=== PATIENT | male | born 1985 | race Caucasian/White ===

== ENCOUNTER 2017-07-27 06:14 | Emergency (ER) | payer OTHER, SELFPAY ==
[2017-07-27 06:17] VITALS: BP 148/81; PULSE 75; RESP 15; TEMP 36.7; O2SAT 97; BMI 31.0
[2017-07-27 06:20] LABS: Bedside Glucose 269 mg/dL (70-110)
--- NOTE | 2017-07-27 06:26 | EKG12_ITS ---
Test Reason : DIZZINESS Blood Pressure : / mmHG Vent. Rate : 075 BPM Atrial Rate : 075 BPM P-R Int : 144 ms QRS Dur : 088 ms QT Int : 350 ms P-R-T Axes : 042 077 027 degrees QTc Int : 390 ms Normal sinus rhythm Normal ECG Confirmed by YASMIN MONROE MD ([id number]), magazine editor EMMANUEL PARIS ([id number] on 07/28/2017 2:30:33 PM Referred By: ROBB Confirmed By:YASMIN MONROE MD
--- NOTE | 2017-07-27 06:27 | ED.VISSUMM ---
- ER Visit Summary Date of Service: 07/27/17 Chief Complaint: [] 48 hours feeling lightheaded History of Present Illness: The patient is a 32 M planing of over last 2 days feeling dizzy. No vertigo. He feels intermittent lightheadedness mainly when doing things and standing up. He states he just feels fuzzy in his head. No headache nausea or vomiting or other symptoms. He had a flulike illness last week with symptoms that have been resolving. He wanted to make sure he was not in diabetic ketoacidosis as he has a history of type 1 diabetes. His blood sugar was low on Tuesday and high on Tuesday. It is 269 here in the department. He has normal thirst and urination. He does not feel like he is in DKA otherwise. Physical Examination: [] Vital signs reviewed General: Well-nourished well-developed Head: Normocephalic atraumatic Eyes: Pupils equal round and reactive to light extraocular movements intact ENT: TMs clear no hemotympanum no trauma Neck: Nontender full range of motion Cardiovascular: Regular rate rhythm no murmurs normal S1-S2 Respiratory: No distress clear to auscultation bilaterally chest nontender Abdomen: Soft nontender nondistended normal bowel sounds no masses Back: Nontender no CVA tenderness Extremities: Nontender active range of motion ?4 extremities no trauma Skin: Normal color no trauma Neuro alert oriented cranial nerves II through XII intact normal strength sensation reflexes Test Results: [] Emergency Department Course and Treatment: [] EKG shows sinus rhythm at 75 without ischemia. CBC normal except hemoglobin 16.8. Otherwise unremarkable except for slight elevated glucose 224. No evidence of diabetic ketoacidosis. At this time I think he is having residual lightheadedness likely from his flulike illness. He will follow-up as an outpatient. Treatment Plan: [] Disposition: [] Impression: [] Lightheadedness Recent flulike illness This note was generated with [employer] dictation software. It may contain incorrect words, spelling, and punctuation that were not noted in review of the chart prior to signing ED Disposition - Plan for ED Patient: Disposition: Home or Assisted Living Chief Complaint: Dizziness Instructions: Possible Causes of Dizziness or Fainting Referrals: Alton Suarez MD [Primary Care Provider] -
[2017-07-27 06:43] LABS: Absolute Lymphocyte Count 1.76 X10^3/ul (0.83-4.51); Absolute Neutrophil Count 4.3 X10^3/uL (2.0-7.7); Basophil# 0.02 X10^3/uL; Basophil% 0.3 % (0-1); Eosinophil# 0.29 X10^3/uL; Eosinophils% 4.2 % (0-5); Hematocrit 47.2 % (40-54); Hemoglobin 16.8 g/dl (13.0-16.5); Lymphocyte # 1.76 X10^3/ul (4.0); Lymphocyte % 25.5 % (19-41); Mean Corp Hgb Conc 35.6 g/gl (32-36); Mean Corpuscular Hgb 32.7 pg (27.0-32.0); Mean Platelet Vol. 9.8 fl (6.2-12.0); Monocyte# 0.54 X10^3/uL; Monocyte% 7.8 % (0-10); Neutrophil # 4.29 X10^3/uL (2.7-7.7); Neutrophil % 62.2 % (47-70); POSITIVE COUNT NO; POSITIVE DIFFERENTIAL NO; POSITIVE MORPHOLOGY NO; Platelet Count 241 K/mm3 (150-450); RBC Distribution Width CV 12.4 % (11.6-14.6); RBC Distribution Width SD 41.5 fl (35.1-43.9); Red Blood Count 5.13 M/mm3 (4.6-6.2); White Blood Count 6.9 K/mm3 (4.4-11.0)
--- NOTE | 2017-07-27 06:47 | ED.DEP ---
ED Disposition - Plan for ED Patient: Disposition: Home or Assisted Living Chief Complaint: Dizziness Instructions: Possible Causes of Dizziness or Fainting Referrals: Alton Suarez MD [Primary Care Provider] -
[2017-07-27 06:57] LABS: Anion Gap 7 (5-15); BUN 18 mg/dL (7-18); BUN/Creat Ratio 23.3 RATIO (10-20); Calcium,Total 9.1 mg/dL (8.5-10.1); Chloride 101 mmol/L (98-107); Creatinine, Serum 0.77 mg/dL (0.70-1.30); EST Glomerular Filtration Rate 125 mL/min (>60); Est Glom Filt Rate - Afr Amer 151 mL/min (>60); Estimated Creatinine Clearance 152.57 ml/min; Glucose 224 mg/dL (74-106); Potassium 4.6 mmol/L (3.5-5.1); Sodium Level 136 mmol/L (136-145)
[2017-07-27 07:16] VITALS: BP 127/76; PULSE 80; RESP 16; O2SAT 99
== END 2017-07-27 07:17 | disposition home or self-care (01) ==
PROVIDERS: Emergency Provider Emergency Medicine; Family Provider Family Medicine; PCP Family Medicine
DX: R42 Dizziness and giddiness (principal); E10.9 Type 1 diabetes mellitus without complications
CPT/HCPCS: 80048; 82962; 84484; 85025; 93005; 99283; J7030; A4216

== ENCOUNTER → 2019-05-22 10:39 | Outpatient (CLI) | payer OTHER, SELFPAY ==
[2019-05-22 09:28] VITALS: BMI 32.4
[2019-05-22 11:22] LABS: Microalbumin,Random Urine < 5.0 mg/L (NO RANGE EST.)
[2019-05-22 11:39] LABS: AST(SGOT) 38 U/L (15-37); Alanine Aminotransfer ALT/SGPT 52 U/L (16-61); Alkaline Phosphatase 104 U/L (45-117); Anion Gap 7 (5-15); BUN 8 mg/dL (7-18); BUN/Creat Ratio 9.5 RATIO (10-20); Calcium,Total 9.2 mg/dL (8.5-10.1); Chloride 100 mmol/L (98-107); Cholesterol 237 mg/dL (200); Creatinine, Serum 0.84 mg/dL (0.70-1.30); EST Glomerular Filtration Rate 112 mL/min (>60); Est Glom Filt Rate - Afr Amer 135 mL/min (>60); Globulin 4.1 g/dL (2.2-4.2); Glucose 254 mg/dL (74-106); High Density Lipoprotein 82 mg/dL; Potassium 4.4 mmol/L (3.5-5.1); Protein, Total 8.1 g/dL (6.4-8.2); Sodium Level 133 mmol/L (136-145); Thyroid Stim Hormone (TSH) 1.21 uIU/mL (0.358-3.74); Triglycerides 80 mg/dL; Very Low Density Lipoprotein 16 mg/dL (5-40)
== END ==
LOC: LAB 10:41
PROVIDERS: PCP Family Medicine; Referring Provider Internal Medicine Endocrinology, Diabetes & Metabolism; Visit Provider Internal Medicine Endocrinology, Diabetes & Metabolism
DX: E10.9 Type 1 diabetes mellitus without complications (principal)
CPT/HCPCS: 36415; 80053; 80061; 82043; 82570; 84443

== ENCOUNTER → 2021-08-25 | Outpatient (CLI) | payer BC, SELFPAY ==
[2021-08-25 12:29] LABS: Vitamin D,25 Hydroxy 11.2 ng/mL
[2021-08-25 12:35] LABS: ALB/GLOB Ratio 0.9 RATIO (0.9-2.4); AST(SGOT) 23 U/L (15-37); Alanine Aminotransfer ALT/SGPT 36 U/L (16-61); Albumin, Serum 3.6 g/dL (3.2-5.0); Alkaline Phosphatase 112 U/L (45-117); Anion Gap 6 (5-15); BUN 12 mg/dL (7-18); BUN/Creat Ratio 15.4 RATIO (10-20); Calcium,Total 8.8 mg/dL (8.5-10.1); Chloride 98 mmol/L (98-107); Cholesterol 239 mg/dL (200); Creatinine, Serum 0.78 mg/dL (0.70-1.30); EST Glomerular Filtration Rate 121 mL/min (>60); Est Glom Filt Rate - Afr Amer 146 mL/min (>60); Glucose 256 mg/dL (74-106); High Density Lipoprotein 72 mg/dL; Potassium 4.8 mmol/L (3.5-5.1); Protein, Total 7.6 g/dL (6.4-8.2); Sodium Level 132 mmol/L (136-145); Thyroid Stim Hormone (TSH) 1.66 uIU/mL (0.358-3.74); Triglycerides 80 mg/dL; Very Low Density Lipoprotein 16 mg/dL (5-40)
[2021-08-25 12:48] LABS: Microalbumin,Random Urine < 5.0 mg/L (NO RANGE EST.)
== END | disposition home or self-care (01) ==
LOC: BIMLAB 08:53
PROVIDERS: PCP Family Medicine; Referring Provider Internal Medicine Endocrinology, Diabetes & Metabolism; Visit Provider Internal Medicine Endocrinology, Diabetes & Metabolism
DX: E10.65 Type 1 diabetes mellitus with hyperglycemia (principal); I10 Essential (primary) hypertension; E55.9 Vitamin D deficiency, unspecified
CPT/HCPCS: 36415; 80053; 80061; 82043; 82306; 82570; 84443

== ENCOUNTER → 2023-01-10 | Outpatient (CLI) | payer BC, SELFPAY ==
[2023-01-10 15:12] LABS: Vitamin D,25 Hydroxy 36.7 ng/mL
[2023-01-10 15:26] LABS: ALB/GLOB Ratio 0.9 RATIO (0.9-2.4); AST(SGOT) 18 U/L (15-37); Alanine Aminotransfer ALT/SGPT 29 U/L (16-61); Albumin, Serum 3.5 g/dL (3.2-5.0); Alkaline Phosphatase 94 U/L (45-117); Anion Gap 4 (5-15); BUN 9 mg/dL (7-18); BUN/Creat Ratio 11.4 RATIO (10-20); Calcium,Total 8.9 mg/dL (8.5-10.1); Chloride 103 mmol/L (98-107); Cholesterol 204 mg/dL (200); Creatinine, Serum 0.79 mg/dL (0.70-1.30); EST Glomerular Filtration Rate 117 mL/min (>60); Est Glom Filt Rate - Afr Amer 142 mL/min (>60); Globulin 3.9 g/dL (2.2-4.2); Glucose 120 mg/dL (74-106); High Density Lipoprotein 62 mg/dL; Protein, Total 7.4 g/dL (6.4-8.2); Sodium Level 136 mmol/L (136-145); Thyroid Stim Hormone (TSH) 1.92 uIU/mL (0.358-3.74); Triglycerides 73 mg/dL; Very Low Density Lipoprotein 15 mg/dL (5-40)
[2023-01-10 16:43] LABS: Microalbumin,Random Urine < 5.0 mg/L (NO RANGE EST.)
== END | disposition home or self-care (01) ==
LOC: LAB 13:45
PROVIDERS: PCP Family Medicine; Referring Provider Nurse Practitioner Family; Visit Provider Nurse Practitioner Family
DX: E10.65 Type 1 diabetes mellitus with hyperglycemia (principal)
CPT/HCPCS: 36415; 80053; 80061; 82043; 82306; 82570; 84443

== ENCOUNTER → 2024-12-04 | Outpatient (CLI) | payer BC, SELFPAY ==
[2024-12-04 16:18] LABS: Creatinine, Urine (random) 144.00 mg/dL (39.00-259.00); Microalbumin,Random Urine < 12.0 mg/L (<20 mg/L)
[2024-12-04 16:48] LABS: AST(SGOT) 23 U/L (<=37); Alanine Aminotransfer ALT/SGPT 18 U/L (<=46); Albumin, Serum 4.0 g/dL (3.5-5.0); Alkaline Phosphatase 84 U/L (40-129); Anion Gap 13 (5-15); BUN 11 mg/dL (4-19); BUN/Creat Ratio 14.1 RATIO (10-20); Calcium,Total 9.4 mg/dL (7.6-11.0); Carbon Dioxide 21.0 mmol/L (21.0-32.0); Chloride 103 mmol/L (98-108); Cholesterol 172 mg/dL (<=200); Globulin 3.4 g/dL (2.2-4.2); Glucose 111 mg/dL (70-99); Low Density Lipoprotein Calc. 107 mg/dL; Potassium 4.0 mmol/L (3.3-5.1); Triglycerides 66 mg/dL; Very Low Density Lipoprotein 13 mg/dL (5-40); cholesterol:hdl ratio screen 3.33
== END | disposition home or self-care (01) ==
LOC: LAB 15:24
PROVIDERS: PCP Family Medicine; Referring Provider Nurse Practitioner Family; Visit Provider Nurse Practitioner Family
DX: E10.65 Type 1 diabetes mellitus with hyperglycemia (principal)
CPT/HCPCS: 36415; 80053; 80061; 82043; 82570; 84443

== ENCOUNTER 2024-12-30 14:36 | Emergency (ER) | payer BC, SELFPAY ==
[2024-12-30 14:36] VITALS: BP 184/116; PULSE 128; RESP 15; TEMP 36.1; O2SAT 98; BMI 38.2
[2024-12-30 15:00] VITALS: BP 149/94; PULSE 109; O2SAT 97
--- NOTE | 2024-12-30 15:02 | EX.ED.GENINJ ---
HPI History of Present Illness Chief Complaint: Chest Other Detail of Chief Complaint: Left chest pain due to trauma Informant: patient Onset/Context/Timing Onset: Yesterday Mechanism/Context: Blunt Injury Location of pain/injuries: - (Anterior left chest) Quality of Pain: Dull and Aching Location: Midclavicular line over ribs 6 7 and 8 Current Severity: Mild Maximum Severity: Severe Worsened by: Deep breathing, certain movements and palpation Relieved by: Remaining still Associated Symptoms Associated Symptoms: Negative for Parasthesias, Weakness, Loss of function, Inability to ambulate, Loss of consciousness or Amnesia Narrative Narrative: Patient is a 39-year-old male with type 1 diabetes. He presents because of blunt trauma to the left anterior chest. He was wrestling with his son. Decided accidentally kneed him in the chest. Has had pain since. Is taken ibuprofen with no improvement. He denies clicking with deep breathing. He denies dyspnea or dyspnea on exertion. Certain movements make the pain worse and palpation makes the pain worse. He denies left upper quadrant abdominal pain or pain referred to his left trapezius/shoulder region. Patient is not on anticoagulant. Review of records indicates he has history of tobacco use and alcohol use. He also has history of hypertension per problem list. He is on losartan. Prior similar symptoms: No Recent Illness/Hospitalization: No [facility] Medical History Essential hypertension Diabetes Home Medications ?Medication ?Instructions ?Recorded ?Last Taken ?Type blood sugar diagnostic #450 ea 04/23/20 Unknown Rx blood-glucose sensor (Dexcom G6 #9 ea 06/12/24 Unknown Rx Sensor device) blood-glucose transmitter (Dexcom #1 ea 06/12/24 Unknown Rx G6 Transmitter device) insulin pump cart,auto,BT,G6/7 #45 ea 12/04/24 Unknown Rx (Omnipod 5 G6-G7 Pods (Gen 5) subcutaneous cartridge) losartan 100 mg tablet 100 mg PO DAILY #90 tabs 12/04/24 Unknown Rx insulin pump cart,automated,BT #45 ea 12/05/24 Unknown Rx Humalog U-100 Insulin 100 unit/mL 100 unit subcut DAILY #90 mL 12/10/24 Unknown Rx subcutaneous solution (insulin lispro) hydrocodone-acetaminophen 5-325mg 1 tab PO Q6H PRN PRN Pain 3 days 12/30/24 Unknown Rx 5mg-325mg #10 TABLETS Allergy/AdvReac Type Severity Reaction Status Date / Time doxycycline Allergy Mild Rash Verified 12/30/24 14:36 tetracycline Allergy Rash Verified 12/30/24 14:36 Family History Grandmother Thyroid disorder Social History Smoking Status: Never smoker alcohol intake: never substance use type: does not use what type of physical activity do you participate in: none ROS ROS ED Constitutional Constitutional ED: Denies chills, fever(s), subjective or sweats Eyes Eyes: Denies blurry vision or change in vision Cardiovascular Cardiovascular: Denies chest pain, palpitations, paroxysmal nocturnal dyspnea or racing heartbeat Respiratory/Chest Respiratory/Chest: Denies cough, dyspnea, dyspnea on exertion or paroxysmal nocturnal dyspnea Gastrointestinal Gastrointestinal: Denies abdominal pain, nausea or vomiting Integumentary Denies Abrasions or rash EXAM Physical Exam Const Vital Signs: 12/30/24 14:36 12/30/24 15:00 Temperature 96.9 F L Temperature Source Temporal Pulse Rate 128 H 109 H Respiratory Rate 15 Blood Pressure 184/116 H 149/94 H Blood Pressure Mean 138 109 Pulse Ox 98 97 Oxygen Delivery Method Room Air Positive well nourished and well developed Constitutional Narrative: BMI is 38.3. Patient is tachycardic and hypertensive. Will have nurse reassess vitals. General Appearance ED: well developed HEENT HEENT Narrative: Head is normocephalic. atraumatic Nose: Negative for septum abnormal Eyes PERRL and EOMs intact bilaterally Chest Wall inspection of chest normal and palpation of chest normal Chest Narrative: Pain patient midclavicular line over ribs 6, 7 and 8. Resp normal respiratory effort and clear to auscultation bilaterally Cardio regular rhythm, S1 normal heart sound and no murmurs Rate: tachycardic GI normal to inspection, nondistended, normoactive bowel sounds, non-tender, non-distended and no masses GI Narrative: There is no hepatosplenomegaly on percussion. Specifically there is no tenderness of the left or right costal margin. There is no evidence of abdominal trauma i.e. bruising. Extremity normal to inspection and full ROM Neuro oriented x3 and CN's II-XII intact bilaterally Norton Coma Scale: document GCS findings Spontaneous Oriented Sensorium / Orientation: alert Skin no rashes or lesions noted, no wounds, skin turgor normal and no jaundice MDM MDM MDM Narrative Medical decision making narrative: Since patient does have point tenderness over multiple ribs we will obtain x-ray to assess for pneumothorax, hemothorax, fractured ribs. Since patient drove himself to the emergency department he did not receive any opiate analgesia. He states he took ibuprofen today. Radiography Chest X-Ray - ED: Read by ED Physician (4 views of the left ribs with chest was obtained. There is no evidence of pneumothorax, hemothorax, fractured ribs. Independent reviewed interpreted by me at 1516) Discharge Plan Triage Chief Complaint: Chest Other ED Provider: Marciano Mcconenll Dx/Rx/DC Orders Clinical Impression: Acute traumatic injury of chest wall, Type 1 diabetes mellitus, Hypertension, Tachycardia, Adult BMI 38.0-38.9 kg/sq m Instructions: ED Chest Wall Contusion Prescriptions: New hydrocodone-acetaminophen 5-325 mg tablet 1 tab PO Q6H PRN PRN (Reason: Pain) 3 Days Qty: 10 0RF No Action (DME) blood sugar diagnostic Strip See Rx Instructions .ROUTE .MEDSUPPLY Qty: 450 3RF Rx Instructions: 5 times daily (DME) Dexcom G6 Sensor Device See Rx Instructions .Route Qty: 9 5RF Rx Instructions: 1 sensor q 10 days (DME) Dexcom G6 Transmitter Device See Rx Instructions .Route Qty: 1 3RF Rx Instructions: 1 sensor q 90 days (DME) Omnipod 5 G6-G7 Pods (Gen 5) Cartridge See Rx Instructions .Route Qty: 45 2RF Rx Instructions: change every 2 days losartan 100 mg tablet 100 mg PO DAILY Qty: 90 3RF (DME) insulin pump cart,automated,BT Cartridge See Rx Instructions .Route Qty: 45 1RF Rx Instructions: 1 pod q 48 hrs insulin lispro [Humalog U-100 Insulin] 100 unit/mL solution 100 unit subcut DAILY Qty: 90 2RF Primary Care Provider: Alton Suarez Referrals: Alton Suarez MD [Primary Care Provider] - Print Language: Greenlandic Disposition Disposition: Home, Self Care
--- NOTE | 2024-12-30 15:03 | RAD_ITS ---
PROCEDURE: RIBS UNI MIN 3V W/PA CHEST 12/30/2024 REASON FOR EXAM: LEFT RIB TRAUMA TECHNIQUE: Procedure Code: RADRIB Modality: DX Procedure: RIBS UNI MIN 3V W/PA CHEST COMPARISON: None FINDINGS: The lungs are clear. No evidence of left rib fracture. There is no left pneumothorax. No soft tissue emphysema. No radiopaque foreign body. RAD/Ribs Uni Min 3V w/PA Chest IMPRESSION: No acute process in the chest and no evidence of left rib fracture. Reading Location: [id number]
--- OUTSIDE RECORDS SUMMARY | 2024-12-30 15:16 | XMS RPT_ITS | CCD ---
Author Organization [facility] Care Team Providers Care Store Planner Name Role Phone Vicki DOOLEY, Greta Corral Primary Care Provider Dr. Greta Cohen Primary Care Provider Dr. Greta Cohen Referring Provider Dr. Nav Sharma Attending Provider VICKI DOOLEY, GRETA Corral Primary Care Physician ADELINA MASTERS MD Attending Unavailable VICKI DOOLEY., GRETA Corral Primary Care Unavailabl e Vicki DOOLEY, Greta Corral Primary Care Provider Dr. Greta Cohen Primary Care Provider Dr. Greta Cohen Referring Provider SANA Barrientos Attending Provider Dr. Greta Cohen MD Primary Care Provider Dr. Greta Cohen MD Referring Provider Dr. Nav Sharma MD Attending Provider Effie Frederick Attending Provider Floyd CYBER INTEL PLANNEREffie Benton Referring Provider Greta Cohen Primary Care Unavailable Greta Cohen Referring Unavailable Effie Barrientos Attending Unavailable Greta Cohen Primary Care Unavailable Greta Cohen Referring Unavailable Nav Sharma Attending Unavailable Greta Cohen Primary Care Unavailable Effie Barrientos Attending Unavailable Effie Barrientos Referring Unavailable Greta Cohen Primary Care Unavailable Effie Barrientos Attending Unavailable Allergies Allergy Classification Reported Allergen(s) Allergy Type Date of Onset Reaction(s) Facility (9 sources) Doxycycline Drug Allergy 7 GI Upset [facility] Work Phone: (5 sources) Streptococcus pneumoniae type 1 capsular polysaccharide antigen / Streptococcus pneumoniae type 10A capsular polysaccharide antigen / Streptococcus pneumoniae type 11A capsular polysaccharide antigen / Streptococcus pneumoniae type 12F capsular polysaccharide antigen / Streptococcus pneumoniae type 14 capsular polysaccharide antigen / Streptococcus pneumoniae type 15B capsular polysaccharide antigen / Streptococcus pneumoniae type 17F capsular polysaccharide antigen / Streptococcus pneumoniae type 18C capsular polysaccharide antigen / Streptococcus pneumoniae type 19A capsular polysaccharide antigen / Streptococcus pneumoniae type 19F capsular polysaccharide antigen / Streptococcus pneumoniae type 2 capsular polysaccharide antigen / Streptococcus pneumoniae type 20 capsular polysaccharide antigen / Streptococcus pneumoniae type 22F capsular polysaccharide antigen / Streptococcus pneumoniae type 23F capsular polysaccharide antigen / Streptococcus pneumoniae type 3 capsular polysaccharide antigen / Streptococcus pneumoniae type 33F capsular polysaccharide antigen / Streptococcus pneumoniae type 4 capsular polysaccharide antigen / Streptococcus pneumoniae type 5 capsular polysaccharide antigen / Streptococcus pneumoniae type 6B capsular polysaccharide antigen / Streptococcus pneumoniae type 7F capsular polysaccharide antigen / Streptococcus pneumoniae type 8 capsular polysaccharide antigen / Streptococcus pneumoniae type 9N capsular polysaccharide antigen / Streptococcus pneumoniae type 9V capsular polysaccharide antigen Drug Allergy 9 Other: See Comments [facility] Work Phone: (5 sources) Tetracycline; Translations: [tetracycline] Drug Allergy 2 [facility] (1 source) Doxycycline Drug Allergy [address] [facility] (1 source) Tetracycline Drug Allergy [address] [facility] Medications Current Medications Medication Drug Class(es) Dates Sig (Normalized) Sig (Original) Blood Sugar Diagnostic (2 sources) Start: 04-23-2020 Blood Sugar Diagnostic Active 0 .ROUTE .MEDSUPPLY 450 April 23, 2020 4:29pm 5 times daily Start: 04-23-2020 Blood Sugar Di agnostic Active 0 .ROUTE .MEDSUPPLY 450 April 23, 2020 1:00am 5 times daily Blood-Glucose Sensor (Dexcom G6 Sensor) device (7 sources) Start: 06-12-2024 Blood-Glucose Sensor (Dexcom G6 Sensor) device Active 0 .Route 9 June 12, 2024 4:10pm Type 1 diabetes mellitus with hyperglycemia Type 1 diabetes mellitus with hyperglycemia 1 sensor q 10 days Start: 05-19-2023 End: 06-12-2024 Blood-Glucose Sensor (Dexcom G6 Sensor) device Discontinued 0 .Route 9 May 19, 2023 4:49pm June 12, 2024 4:11pm Type 1 diabetes mellitus with hyperglycemia Type 1 diabetes mellitus with hyperglycemia 1 sensor q 10 days Start: 06-30-2022 End: 05-19-2023 Blood-Glucose Sensor (Dexcom G6 Sensor) device Discontinued 0 .Route 9 June 30, 2022 1:00am May 19, 2023 4:49pm Type 1 diabetes mellitus with hyperglycemia Type 1 diabetes mellitus with hyperglycemia 1 sensor q 10 days Start: 06-30-2022 Blood-Glucose Sensor (Dexcom G6 Sensor) device Active 0 .Route 9 June 30, 2022 1:00am 1 sensor q 10 days Blood-Glucose Transmitter (Dexcom G6 Transmitter) device (7 sources) Start: 06-12-2024 Blood-Glucose Transmitter (Dexcom G6 Transmitter) device Active 0 .Route 1 3 June 12, 2024 4:11pm Type 1 diabetes mellitus with hyperglycemia Type 1 diabetes mellitus with hyperglycemia 1 sensor q 90 days Start: 05-19-2023 End: 06-12-2024 Blood-Glucose Transmitter (D excom G6 Transmitter) device Discontinued 0 .Route 1 3 May 19, 2023 4:49pm June 12, 2024 4:11pm Type 1 diabetes mellitus with hyperglycemia Type 1 diabetes mellitus with hyperglycemia 1 sensor q 90 days Start: 06-30-2022 End: 05-19-2023 Blood-Glucose Transmitter (D excom G6 Transmitter) device Discontinued 0 .Route 1 June 30, 2022 1:00am May 19, 2023 4:49pm Type 1 diabetes mellitus with hyperglycemia Type 1 diabetes mellitus with hyperglycemia 1 sensor q 90 days Start: 06-30-2022 Blood-Glucose Transmitter (Dexcom G6 Transmitter) device Active 0 .Route 1 June 30, 2022 1:00am 1 sensor q 90 days Flash Glucose Sensor (Freest yle Magdaleno 2 Sensor) kit (4 sources) Start: 08-25-2021 Flash Glucose Sensor (Freestyle Magdaleno 2 Sensor) kit Active 0 .ROUTE .MEDSUPPLY August 25, 2021 8:38am As directed Start: 08-25-2021 End: 08-26-2022 Flash Glucose Sensor (Freest yle Magdaleno 2 Sensor) kit Discontinued 0 .ROUTE .MEDSUPPLY 6 3 August 25, 2021 12:00am August 26, 2022 10:33am As directed Start: 08-25-2021 End: 08-26-2022 Flash Glucose Sensor (Freest yle Magdaleno 2 Sensor) kit Discontinued 0 .ROUTE .MEDSUPPLY 6 August 25, 2021 12:00am August 26, 2022 10:33am As directed NovoLog (1 source) Insulin Analog Start: 04-04-2017 NovoLOG Subcut aneous, TIDAC, 0 Refill(s) Start Date: 04/04/17 Status: Ordered insulin lispro 100 unt/ml injectable solution (20 sources) Insulin Analog Start: 07-05-2022 End: 12-10-2024 Insulin Lispro (Humalog U-100 Insulin) 100 unit/mL solution Active 100 U SC DAILY 90 2 December 10, 2024 1:51pm Start: 07-11-2019 End: 07-08-2022 Insulin Lispro (Humalog Kwik pen Insulin) 100 unit/mL insulin pen Discontinued 20 U SC THREE TIMES A DAY 54 1 June 24, 2022 1:51pm July 08, 2022 2:32pm SSI: 1 unit for every 30 points over 150 Start: 04-26-2019 insulin lispro (HUMALOG KWIKPEN INSULIN) 100 unit/mL inpn TAKING 10 UNITS WITH MEALS PLUS SLIDING SCALE UP TO 40 UNITS DAILY 15 Pen 0 04/26/2019 Active Start: 07-27-2017 End: 07-11-2019 Insulin Lispro 100 UNIT/ML i nsulin pen Discontinued 0 U SQ THREE TIMES A DAY July 27, 2017 12:00am July 11, 2019 2:29pm Start: 07-27-2017 End: 07-11-2019 Insulin Lispro Discontinued 0 UNIT SQ THREE TIMES A DAY July 27, 2017 6:15am July 11, 2019 2:29pm Comment on above: TAKING 10 UNITS WITH MEALS PLUS SLIDING SCALE UP TO 40 UNITS DAILY Insulin Pump Cart,Auto,Bt,G6/7 (Omnipod 5 G6-G7 Pods (Gen 5)) cartridge (1 source) Start: 12-04-2024 Insulin Pump Cart,Auto,Bt,G6/7 (Omnipod 5 G6-G7 Pods (Gen 5)) cartridge Active 0 .Route 45 2 December 04, 2024 12:00am change every 2 days Insulin Pump Cart,Automated,Bt cartridge (3 sources) Start: 12-05-2024 Insulin Pump Cart,Automated,Bt cartridge Active 0 .Route 45 December 05, 2024 9:00am Type 1 diabetes mellitus with hyperglycemia Type 1 diabetes mellitus with hyperglycemia 1 pod q 48 hrs Start: 04-13-2024 End: 12-05-2024 Insulin Pump Cart,Automated, Bt cartridge Discontinued 0 .Route 45 April 13, 2024 5:23pm December 05, 2024 9:00am Type 1 diabetes mellitus with hyperglycemia Type 1 diabetes mellitus with hyperglycemia 1 pod q 48 hrs Start: 04-13-2024 Insulin Pump C art,Automated,Bt cartridge Active 0 .Route 45 April 13, 2024 5:23pm Type 1 diabetes mellitus with hyperglycemia Type 1 diabetes mellitus with hyperglycemia 1 pod q 48 hrs losartan potassium 100 mg oral tablet (20 sources) Angiotensin 2 Receptor Sandi Start: 11-04-2021 End: 12-04-2024 take 1 tablet by mouth once daily Losartan 100 mg tablet Active 100 mg PO DAILY 90 3 December 04, 2024 4:39pm Start: 08-25-2021 End: 11-04-2021 take 1 tablet by mouth once daily Losartan 50 mg tablet Discontinued 50 mg PO DAILY 90 2 August 25, 2021 12:00am November 04, 2021 8:49am naproxen 500 mg oral tablet (1 source) Nonsteroidal Anti-inflammatory Drug Start: 05-04-2022 naproxen 500 mg o ral tablet Dose : 500 mg = 1 tab(s), Oral, BID, PRN as needed for pain, # 20 tab(s), 0 Refill(s), Chest pain Start Date: 05/04/22 Status: Ordered Pen Needle, Diabetic (2 sources) Start: 01-01-2014 Pen Needle, Di abetic Active 1 EACH MC 4 TIMES DAILY January 01, 2014 12:44pm use with Lantus and Novolog insulin Start: 01-01-2014 End: 08-26-2022 Pen Needle, Diabetic Discont inued 1 EACH MC 4 TIMES DAILY 120 January 01, 2014 12:00am August 26, 2022 10:33am use with Lantus and Novolog insulin Completed/Discontinued Medications Medication Drug Class(es) Dates Sig (Normalized) Sig (Original) azithromycin 250 mg oral tablet (4 sources) Macrolide Antimicrobial Start: 12-30-2013 End: 01-01-2014 Azithromycin (Zithromax Z-Benjamin) 250 MG tablet Discontinued 250 mg PO DIRECTED December 30, 2013 12:00am January 01, 2014 12:43pm fluconazole 100 mg oral tablet (4 sources) Azole Antifungal Start: 12-30-2013 End: 01-01-2014 take 1 tablet by mouth once Fluconazole 100 MG tablet Discontinued 100 mg PO ONE TIME December 30, 2013 12:00am January 01, 2014 12:43pm 3 ml insulin detemir 100 unt/ml pen injector (20 sources) Insulin Analog Start: 07-17-2020 End: 08-26-2022 Insulin Detemir U-100 (Levemir Flextouch U-100 Insuln) 100 unit/mL (3 mL) insulin pen Discontinued 25 U SC AT BEDTIME 24 2 June 30, 2022 1:44pm August 26, 2022 10:32am Start: 07-27-2017 End: 12-21-2019 Insulin Detemir U-100 100 UN ITS/ML insulin pen Discontinued 0 U SC EVERY MORNING July 27, 2017 6:16am December 21, 2019 4:30pm Start: 07-27-2017 End: 12-21-2019 Insulin Detemir U-100 Discon tinued 0 UNITS SC EVERY MORNING July 27, 2017 6:16am December 21, 2019 4:30pm Start: 01-01-2014 End: 07-27-2017 Insulin Detemir U-100 (Levem ir Flextouch U-100 Insuln) 100 UNITS/ML Flexpen Discontinued 35 UNITS SC EVERY MORNING 4 January 01, 2014 12:42pm July 27, 2017 6:16am Start: 01-01-2014 End: 07-27-2017 Insulin Detemir U-100 (Levem ir Flextouch U100 Insulin) 100 UNITS/ML Flexpen Discontinued 35 U SC EVERY MORNING 4 0 January 01, 2014 12:00am July 27, 2017 6:16am Comment on above: Inject 15 Units subc utaneously daily at bedtime. 3 ml insulin glargine 100 unt/ml pen injector (9 sources) Insulin Analog Start: 12-21-2019 End: 07-17-2020 Insulin Glargine (Basaglar Kwikpen U-100 Insulin) 100 unit/mL (3 mL) insulin pen Discontinued 25 U SC DAILY 15 April 21, 2020 10:45am July 17, 2020 6:50pm Start: 04-04-2017 Lantus Subcuta neous, 0 Refill(s) Start Date: 04/04/17 Status: Ordered Insulin Pump Cart,Auto,Bt-Cn tr (Omnipod 5 G6 Intro Kit (Gen 5)) cartridge (3 sources) Start: 06-30-2022 End: 06-03-2023 Insulin Pump Cart,Auto,Bt-Cn tr (Omnipod 5 G6 Intro Kit (Gen 5)) cartridge Discontinued 0 .Route 1 0 June 30, 2022 1:00am June 03, 2023 9:49am Type 1 diabetes mellitus with hyperglycemia Type 1 diabetes mellitus with hyperglycemia As directed Start: 06-30-2022 Insulin Pump C art,Auto,Bt-Cntr (Omnipod 5 G6 Intro Kit (Gen 5)) cartridge Active 0 .Route 1 June 30, 2022 1:00am As directed Insulin Pump Cart,Automated, Bt (Omnipod 5 G6 Pods (Gen 5)) cartridge (8 sources) Start: 06-03-2023 End: 04-13-2024 Insulin Pump Cart,Automated, Bt (Omnipod 5 G6 Pods (Gen 5)) cartridge Discontinued 0 .Route 45 June 03, 2023 9:50am April 13, 2024 5:23pm Type 1 diabetes mellitus with hyperglycemia Type 1 diabetes mellitus with hyperglycemia 1 pod q 48 hrs Start: 12-06-2022 End: 06-03-2023 Insulin Pump Cart,Automated, Bt (Omnipod 5 G6 Pods (Gen 5)) cartridge Discontinued 0 .Route 45 December 06, 2022 8:21am June 03, 2023 9:50am Type 1 diabetes mellitus with hyperglycemia Type 1 diabetes mellitus with hyperglycemia 1 pod q 48 hrs Start: 12-06-2022 Insulin Pump C art,Automated,Bt (Omnipod 5 G6 Pods (Gen 5)) cartridge Active 0 .Route 45 December 06, 2022 8:21am 1 pod q 48 hrs Start: 06-30-2022 End: 12-06-2022 Insulin Pump Cart,Automated, Bt (Omnipod 5 G6 Pods (Gen 5)) cartridge Discontinued 0 .Route 45 June 30, 2022 1:00am December 06, 2022 8:21am Type 1 diabetes mellitus with hyperglycemia Type 1 diabetes mellitus with hyperglycemia 1 pod q 48 hrs Start: 06-30-2022 End: 12-06-2022 Insulin Pump Cart,Automated, Bt (Omnipod 5 G6 Pods (Gen 5)) cartridge Discontinued 0 .Route 45 June 30, 2022 1:00am December 06, 2022 8:21am 1 pod q 48 hrs Pen Needle, Diabetic 1 EACH needle (2 sources) Start: 01-01-2014 End: 08-26-2022 Pen Needle, Diabetic 1 EACH needle Discontinued 1 NMA MC 4 TIMES DAILY 120 0 January 01, 2014 12:00am August 26, 2022 10:33am use with Lantus and Novolog insulin Problems Active Problems Problem Classification Problem Date Documented Date Episodic/Chronic Alcohol-related disorders (4 sources) Alcohol abuse; Translations: [Alcohol abuse, uncomplicated] 12-30-2013 Chronic Anxiety disorders (5 sources) Anxiety; Translations: [Anxiety disorder, unspecified] Onset: 08-07-2014 08-29-2014 Chronic Diabetes mellitus with complications (6 sources) Hyperglycemia due to type 1 diabetes mellitus; Translations: [Type 1 diabetes mellitus with hyperglycemia] Onset: 07-25-2024 06-30-2022 Chronic Diabetes mellitus without complication (14 sources) Type 1 diabetes mellitus without complication; Translations: [Type 1 diabetes mellitus without complications] Onset: 10-15-2015 05-22-2019 Chronic Diabetes mellitus without complication (3 sources) Insulin pump present; Translations: [Presence of insulin pump (external) (internal)] 08-26-2022 Episodic Disorders of lipid metabolism (2 sources) Hypercholesterolemia ; Translations: [Pure hypercholesterolemia , unspecified] 07-28-2023 Chronic Essential hypertension (6 sources) Essential hypertension; Translations: [Essential (primary) hypertension] Chronic Nonspecific chest pain (1 source) Chest pain; Translations: [Chest pain, unspecified] Onset: 05-04-2022 Episodic Nutritional deficiencies (7 sources) Vitamin D deficiency; Translations: [Vitamin D deficiency, unspecified] Onset: 08-25-2021 08-25-2021 Chronic Other nutritional; endocrine; and metabolic disorders (4 sources) Obese class I; Translations: [Obesity, unspecified] 12-30-2013 Chronic Other nutritional; endocrine; and metabolic disorders (4 sources) Obesity; Translations: [Obesity, unspecified] 04-21-2020 Chronic Other nutritional; endocrine; and metabolic disorders (2 sources) Obesity, unspecified; Translations: [Obesity, unspecified] Chronic Screening and history of mental health and substance abuse codes (5 sources) Tobacco use and exposure - finding; Translations: [Personal history of nicotine dependence] Episodic Substance-related disorders (5 sources) Smoker; Translations: [Nicotine dependence, unspecified, uncomplicated] Onset: 12-17-2016 06-28-2018 Chronic Past or Other Problems Problem Classification Problem Date Documented Da te Episodic/Chronic Cardiac dysrhythmias (5 sources) Palpitations; Translations: [Palpitations] Onset: 08-07-2014 08-07-2014 Episodic Other circulatory disease (5 sources) Elevated blood-pressure reading without diagnosis of hypertension; Translations: [Elevated blood-pressure reading, without diagnosis of hypertension] Onset: 12-17-2016 12-17-2016 Episodic Other skin disorders (5 sources) Foot callus; Translations: [Corns and callosities] Onset: 06-28-2018 06-28-2018 Episodic Results Test Name Value Interpretation Reference Range Facility Anion gap in Serum or Plasma Ordered By: Effie Barrientos on 12-04-2024 Anion gap [Moles/Vol] 13 mmol/L 5-15 [facility] BUN/creatinine ratioOrdered By: Effie Barrientos on 12-04-2024 Urea nitrogen/Creatinine [Mass ratio] 14.1 mg/mg 10-[address] [facility] Bilirubin, totalOrdered By: Effie Barrientos on 12-04-2024 Bilirubin [Mass/Vol] 0.44 mg/dL 0.00-1.30 [facility] Calculated very low density lipoprotein (VLDL) cholesterol measurementOrdered By: Effie Barrientos on 12-04-2024 Calculated very low density lipoprotein (VLDL) cholesterol measurement 13 mg/dL 5-[address] [facility] Carbon dioxide, total [Moles /volume] in Central venous bloodOrdered By: Effie Barrientos on 12-04-2024 CO2 [Moles/Vol] 21.0 mmol/L 21.0-32.[address] [facility] Chloride assayOrdered By: Me angel Barrientos on 12-04-2024 Chloride [Moles/Vol] 103 mmol/L 98-108 [facility] Comprehensive Metabolic Prof ilon 12-04-2024 Albumin [Mass/Vol] 4.0 g/dL Normal 3.5-5.0 [facility] Comment on above: Performed By: #### L 500.4050, L502.0250, L500.4100, L501.9520 #### [facility] [address] [place], [address] Albumin/Globulin [Mass ratio] 1.2 {ratio} Normal 0.9-2.[address] [facility] Comment on above: Performed By: #### L 500.4050, L502.0250, L500.4100, [id number] #### [facility] [address] [place], [address] ALK PHOS 84 U/L Normal 40-[address] [facility] Comment on above: Performed By: #### L 500.4050, L502.0250, L500.4100, [id number] #### [facility] [address] [place], [address] ALT [Catalytic activity/Vol] 18 U/L Normal <=[address] [facility] Comment on above: Performed By: #### L 500.4050, L502.0250, L500.4100, [id number] #### [facility] [address] [place], [address] AST [Catalytic activity/Vol] 23 U/L Normal <=[address] [facility] Comment on above: Performed By: #### L 500.4050, L502.0250, L500.4100, [id number] #### [facility] [address] [place], [address] Bilirubin [Mass/Vol] 0.44 mg/dL Normal 0.00-1.30 [facility] Comment on above: Performed By: #### L 500.4050, L502.0250, L500.4100, [id number] #### [facility] [address] [place], [address] BUN/CRE 14.1 RATIO Normal 10-[address] [facility] Comment on above: Performed By: #### L 500.4050, L502.0250, L500.4100, [id number] #### [facility] [address] [place], [address] Calcium [Mass/Vol] 9.4 mg/dL Normal 7.6-11.0 [facility] Comment on above: Performed By: #### L 500.4050, L502.0250, L500.4100, [id number] #### [facility] [address] [place], [address] Chloride [Moles/Vol] 103 mmol/L Normal 98-108 [facility] Comment on above: Performed By: #### L 500.4050, L502.0250, L500.4100, [id number] #### [facility] [address] [place], [address] CO2 [Moles/Vol] 21.0 mmol/L Normal 21.0-32.[address] [facility] Comment on above: Performed By: #### L 500.4050, L502.0250, L500.4100, [id number] #### [facility] [address] [place], [address] Creatinine [Mass/Vol] 0.77 mg/dL Normal 0.70-1.20 [facility] Comment on above: Performed By: #### L 500.4050, L502.0250, L500.4100, [id number] #### [facility] [address] [place], [address] GAP 13 Normal 5-[address] [facility] Comment on above: Performed By: #### L 500.4050, L502.0250, L500.4100, L501.9520 #### [facility] [address] [place], [address] GFR/1.73 sq M.predicted among non-blacks MDRD (S/P/Bld) [Vol rate/Area] 118 mL/min/{1.73_m2} Normal >[address] [facility] Comment on above: Result Comment: mL/m in/1.73m2 CKD-EPI Creatinine Equation (2020) Performed By: #### L 500.4050, L502.0250, L500.4100, L501.9520 #### [facility] [address] [place], [address] Globulin (S) [Mass/Vol] 3.4 g/dL Normal 2.2-4.[address] [facility] Comment on above: Performed By: #### L 500.4050, L502.0250, L500.4100, L501.9520 #### [facility] [address] [place], [address] Glucose [Mass/Vol] 111 mg/dL High 70-99 [facility] Comment on above: Performed By: #### L 500.4050, L502.0250, L500.4100, L501.9520 #### [facility] [address] [place], [address] Potassium [Moles/Vol] 4.0 mmol/L Normal 3.3-5.1 [facility] Comment on above: Performed By: #### L 500.4050, L502.0250, L500.4100, L501.9520 #### [facility] [address] [place], [address] Sodium [Moles/Vol] 137 mmol/L Normal 133-145 [facility] Comment on above: Performed By: #### L 500.4050, L502.0250, L500.4100, L501.9520 #### [facility] [address] [place], [address] T PROT 7.4 g/dL Normal 5.9-8.[address] [facility] Comment on above: Performed By: #### L 500.4050, L502.0250, L500.4100, L501.9520 #### [facility] [address] [place], [address] Urea nitrogen [Mass/Vol] 11 mg/dL Normal 4-[address] [facility] Comment on above: Performed By: #### L 500.4050, L502.0250, L500.4100, L501.9520 #### [facility] [address] [place], [place], [address] Endocrinology Visit Reporton 12-04-2024 Endocrinology Visit Report [facility] [address] [place], [place] [address] OFFICE VISIT Date of Service: 12/04/24 MR#: [id number] Acct: [id number] Name: MARISOL HIGGINBOTHAM Rep #: [id number] : 1985 Provider: Yessi Law Age/Sex: 39/M [place] [facility] [place]: Signed Intake Vital Signs 01/26/24 13:34 12/04/24 14:45 Height 6 ft 6 ft Weight: 289 lb 4 oz 279 lb 2 oz BMI 39.2 37.8 BP 128/89 H 130/98 H Blood Pressure Location Lt brachial Lt brachial Position Sitting Sitting Pulse 94 107 H Pulse Source Monitor Pulse Oximetry (%) 96 97 Oxygen Delivery Method room air Intake Visit Reasons: 11 M FU Chief Complaint: Diabetes Is patient in pain?: No Allergies doxycycline Allergy (Mild, Verified 12/04/24 14:49) Rash tetracycline Allergy (Verified 12/04/24 14:49) Rash Medications ???Medication ???Instructions ???Recorded ???Confirmed ???Type blood sugar diagnostic #450 ea 04/23/20 12/04/24 Rx blood-glucose sensor (Dexcom G6 #9 ea 06/12/24 12/04/24 Rx Sensor device) blood-glucose transmitter (Dexcom #1 ea 06/12/24 12/04/24 Rx G6 Transmitter device) insulin pump cart,auto,BT,G6/7 #45 ea 12/04/24 Rx (Omnipod 5 G6-G7 Pods (Gen 5) subcutaneous cartridge) losartan 100 mg tablet 100 mg PO DAILY #90 tabs 12/04/24 Rx insulin pump cart,automated,BT #45 ea 12/05/24 Rx Humalog U-100 Insulin 100 unit/mL 100 unit subcut DAILY #90 mL 11/30 05/26 Rx subcutaneous solution (insulin lispro) [facility] Medical History Essential hypertension Diabetes Family History Grandmother Thyroid disorder Social History Smoking Status: Former smoker alcohol intake: never substance use type: does not use what type of physical activity do you participate in: none HPI HPI Chief Complaint: Diabetes Details: MARISOL HIGGINBOTHAM, is a 39 M who presents to the office today for follow up. A1c is 6.6% He is using Omnipod 5 insulin pump with Dexcom G7CGM and automated mode. Upload shows controlled blood sugars. He is pleased. He is on ARB, he doesn't want a statin. He is feeling well. ROS Const Constitutional: No fatigue, weight change or change in appetite Eyes Eyes: No change in vision ENT ENT: No dizziness/vertigo or difficulty swallowing Cardio Cardiology: No chest pain at rest, chest pain with exertion, shortness of breath or palpitations Musc Musculoskeletal: No abnormal gait, joint pain, numbness or tingling Neuro Neurology: No abnormal gait, memory loss, numbness or tingling Psych Psychiatric: No change in appetite, No memory loss and No Thoughts of harming yourself/Others Resp Respiratory: No cough, chest congestion or shortness of breath Gastro GI: No abdominal pain, constipation, diarrhea or difficulty swallowing Genitourinary Male: No burning urination Skin Skin: No itchy eyes or wounds Endo Endocrine: No fatigue or weight change Aller/Imm Allergy/Immunologic: No itchy eyes Exam Const General: cooperative, healthy appearing, comfortable, no acute distress, well developed and not cushingoid Nutritional Appearance: well nourished Orientation: alert, awake and oriented x3 HENMT Head: normal to inspection Ears: hearing grossly normal bilaterally Nose: external nose normal Mouth: oral mucosae normal Eyes General: appearance normal, both eyes and all related structures Alignment and Position: alignment normal Periorbital: periorbital findings normal Eyelids: eyelids normal Conjunctivae: conjunctivae normal Neck Neck: normal visual inspection Neck mass: No Chest Chest palpation inspection: normal inspection of the chest Resp Effort Inspection: normal respiratory effort, able to speak in complete sentences, symmetric chest movement, no audible wheezes and no cough Auscultation: Bilateral: Clear to Auscultation Cardio Rate: regular rate Rhythm: regular rhythm Skin General: no rashes or lesions noted Neuro General: patient alert, patient awake and patient oriented x3 Cranial Nerves: CN's II-XI intact bilaterally Cognition: normal cognition Speech: speech normal Gait: normal gait Motor: muscle tone normal throughout Extrem General: no edema Psych Appearance: grossly normal Mental Status: mental status grossly normal Mood: congruent mood Affect: normal affect Speech and Movement: speech and movement normal Attitude: cooperative Thought Process: normal Thought Content: normal Judgment: judgment good Results POC A1C POC A1C 6.6 % Last Edit by Forrest Tavera RN on 12/04/24 14:52 Assessment and Plan Assessment and Plan (more content not included)... Normal [facility] Glomerular filtration rate ( GFR) estimation/1.73 sq m using serum, plasma, or whole bOrdered By: Effie Barrientos on 12-04-2024 GFR/1.73 sq M.predicted among non-blacks MDRD (S/P/Bld) [Vol rate/Area] 118 mL/min/{1.73_m2} >[address] [facility] Comment on above: mL/min/1.73m2 CKD-EP I Creatinine Equation (2020) LDL calc ser/plasOrdered By: Effie Barrientos on 12-04-2024 Cholesterol in LDL [Mass/Vol] 107 mg/dL [facility] Comment on above: Bgqdmtbdvu=213-406 m g/dL & Higher Skno=512 mg/dL or greaterFriedwald Equation for LDL-C Laboratory - Chemistry and C hemistry - challengeOrdered By: Effie Barrientos on 12-04-2024 AST [Catalytic activity/Vol] 23 U/L <[address] [facility] Laboratory - Hematology and Cell countsOrdered By: Nav Sharma on 12-04-2024 HbA1c (Bld) [Mass fraction] 6.6 % High 4.2-6.[address] [facility] Lipid Profileon 12-04-2024 CHOL:HDL 3.[address] [facility] Comment on above: Performed By: #### L 500.4050, L502.0250, L500.4100, L501.9520 #### [facility] [address] [place], [address] Cholesterol [Mass/Vol] 172 mg/dL Normal <=200 [facility] Comment on above: Result Comment: Chol esterol level, Desirable <200 mg/dL Borderline high cholesterol 200-239 mg/dL High cholesterol >=240 mg/dL Recommendations of the NCEP Adult Treatment Panel for the following risk-cutoff thresholds for the [place] population. Performed By: #### L 500.4050, L502.0250, L500.4100, L501.9520 #### [facility] [address] [place], [address] Cholesterol in HDL [Mass/Vol] 52 mg/dL Normal [facility] Comment on above: Result Comment: [place]iss onal Cholesterol Education Program (NCEP) guidelines: <40 mg/dL: Low HDL-cholesterol (major risk factor for CHD) >= 60 mg/dL: High HDL-cholesterol (negative risk factor for CHD) HDL-cholesterol is affected by a number of factors, e.g. smoking, exercise, hormones, sex and age. Performed By: #### L 500.4050, L502.0250, L500.4100, L501.9520 #### [facility] [address] [place], [address] Cholesterol in LDL [Mass/Vol] 107 mg/dL Normal [facility] Comment on above: Result Comment: Bord wtbqpd=130-889 mg/dL Higher Itsx=178 mg/dL or greater Friedwald Equation for LDL-C Performed By: #### L 500.4050, L502.0250, L500.4100, L501.9520 #### [facility] [address] [place], [address] Cholesterol in VLDL [Mass/Vol] 13 mg/dL Normal 5-[address] [facility] Comment on above: Performed By: #### L 500.4050, L502.0250, L500.4100, L501.9520 #### [facility] [address] [place], [address] Triglyceride [Mass/Vol] 66 mg/dL Normal [facility] Comment on above: Result Comment: The drugs N-Acetylcysteine and Metamizole may falsely depress this assay. Normal range: <150 mg/dL Borderline High: 150-199 mg/dL High: 200-499 mg/dL Very High: >500 mg/dL Performed By: #### L 500.4050, L502.0250, L500.4100, L501.9520 #### [facility] [address] [place], [address] Microalb:Creat Ratio,Random URon 12-04-2024 Creatinine [Mass/Vol] 144.00 mg/dL Normal 39.00-259.[address] [facility] Comment on above: Performed By: #### L 500.4050, L502.0250, L500.4100, L501.9520 #### [facility] [address] [place], [address] MALB:CREAT UNABLE TO CALCULATE Normal <30 mg/g CRE [facility] Comment on above: Performed By: #### L 500.4050, L502.0250, L500.4100, L501.9520 #### [facility] [address] [place], [address] MICROALBUMIN,UR < 12.0 Normal <20 mg/L [facility] Comment on above: Performed By: #### L 500.4050, L502.0250, L500.4100, L501.9520 #### [facility] [place], [address] Microalbumin/creat ratio urO rdered By: Effie Barrientos on 12-04-2024 Urine microalbumin/creatinin e ratio measurement UNABLE TO CALCULATE mg/g CRE <[address] [facility] Potassium measurement (mass/ volume)Ordered By: Effie Barrientos on 12-04-2024 Potassium (Unsp spec) [Mass/Vol] 4.0 mmol/L 3.3-5.[address] [facility] Random urine creatinine ariella urement (mass/volume)Ordered By: Effie Barrientos on 12-04-2024 Creatinine Unsp time (U) [Mass/Vol] 144.00 mg/dL 39.00-259.[address] [facility] Screening total cholesterol/ high density lipoprotein (HDL) cholesterol ratioOrdered By: Effie Barrientos on 12-04-2024 Cholesterol.total/Chol esterol in HDL [Mass ratio] 3.33 {ratio} [facility] Serum creatinine measurement (mass/volume)Ordered By: Effie Barrientos on 12-04-2024 Creatinine [Mass/Vol] 0.77 mg/dL 0.70-1.20 [facility] Serum globulin measurementOr dered By: Effie Barrientos on 12-04-2024 Globulin (S) [Mass/Vol] 3.4 g/dL 2.2-4.[address] [facility] Serum glucose measurement (m ass/volume)Ordered By: Effie Barrientos on 12-04-2024 Glucose [Mass/Vol] 111 mg/dL High 70-99 [facility] Serum or plasma alanine thapa otransferase (ALT) measurementOrdered By: Effie Barrientos on 12-04-2024 ALT [Catalytic activity/Vol] 18 U/L <[address] [facility] Serum or plasma albumin ariella urement (mass/volume)Ordered By: Effie Barrientos on 12-04-2024 Albumin [Mass/Vol] 4.0 g/dL 3.5-5.0 [facility] Serum or plasma albumin/glob ulin mass ratioOrdered By: Effie Barrientos on 12-04-2024 Albumin/Globulin [Mass ratio] 1.2 {ratio} 0.9-2.[address] [facility] Serum or plasma alkaline cale sphatase measurementOrdered By: Effie Barrientos on 12-04-2024 ALP [Catalytic activity/Vol] 84 U/L 40-[address] [facility] Serum or plasma calcium ariella urement (mass/volume)Ordered By: Effie Barrientos on 12-04-2024 Calcium [Mass/Vol] 9.4 mg/dL 7.6-11.0 [facility] Serum or plasma cholesterol in HDL measurement (mass/volume)Ordered By: Effie Barrientos on 12-04-2024 Cholesterol in HDL [Mass/Vol] 52 mg/dL >[address] [facility] Comment on above: National Cholesterol Education Program (NCEP) guidelines:<40 mg/dL: Low HDL-cholesterol (major risk factor for CHD)>= 60 mg/dL: High HDL-cholesterol (negative risk factor for CHD)HDL-cholesterol is affected by a number of factors, e.g. smoking, exercise, hormones, sex and age. Serum or plasma cholesterol measurement (mass/volume)Ordered By: Effie Barrientos on 12-04-2024 Cholesterol [Mass/Vol] 172 mg/dL <201 [facility] Comment on above: Cholesterol level, D esirable <200 mg/dLBorderline high cholesterol 200-239 mg/dLHigh cholesterol >=240 mg/dLRecommendations of the NCEP Adult Treatment Panel for the following risk-cutoff thresholds for the [place] population. Serum or plasma urea nitroge n measurement (mass/volume)Ordered By: Effie Barrientos on 12-04-2024 Urea nitrogen [Mass/Vol] 11 mg/dL 4-[address] [facility] Sodium levelOrdered By: Vishal Barrientos on 12-04-2024 Sodium [Moles/Vol] 137 mmol/L 133-145 [facility] TSH DL <= 0.005 mIU/L QnOrde red By: Effie Barrientos on 12-04-2024 TSH Qn 1.870 uIU/mL 0.300-4.[address] [facility] Thyroid Stim Hormone (TSH)on 12-04-2024 TSH 1.870 uIU/mL Normal 0.300-4.[address] [facility] Comment on above: Performed By: #### L 500.4050, L502.0250, L500.4100, L501.9520 #### [facility] [address] [place], [address] Total proteinOrdered By: Deanna Barrientos on 12-04-2024 Protein [Mass/Vol] 7.4 g/dL 5.9-8.4 [facility] Triglycerides measurementOrd ered By: Effie Barrientos on 12-04-2024 Triglyceride [Mass/Vol] 66 mg/dL <[address] [facility] Comment on above: The drugs N-Acetylcy steine and Metamizole may falsely depress this assay. Normal range: <150 mg/dLBorderline High: 150-199 mg/dLHigh: 200-499 mg/dLVery High: >500 mg/dL Urine albumin measurement [facility] detection limit of 20 mg/L or less (mass/volume)Ordered By: Effie Barrientos on 12-04-2024 Albumin DL <= 20 mg/L (U) [Mass/Vol] < 12.0 mg/L <20 mg/L [facility] Endocrinology Visit Reporton 01-26-2024 Endocrinology Visit Report [facility] [address] [place] [address] OFFICE VISIT Date of Service: 01/26/24 MR#: [id number] Acct: [id number] Name: MARISOL HIGGINBOTHAM Rep #: [id number] : 1985 Provider: SANA lockett Age/Sex: 38/M [place] [facility] [place]: Signed Intake Vital Signs 07/28/23 13:41 01/26/24 13:34 Height 6 ft 6 ft Weight: 286 lb 289 lb 4 oz BMI 38.7 39.2 BP 138/94 H 128/89 H Blood Pressure Location Lt brachial Lt brachial Position Sitting Sitting Pulse 104 H 94 Pulse Source Monitor Temp 98.4 F Temp Source Temporal Pulse Oximetry (%) 96 96 Oxygen Delivery Method room air Intake Visit Reasons: 6 M FU Chief Complaint: Diabetes Is patient in pain?: No Allergies doxycycline Allergy (Mild, Verified 07/28/23 13:45) Rash tetracycline Allergy (Verified 07/28/23 13:45) Rash Medications ???Medication ???Instructions ???Recorded ???Confirmed ???Type blood sugar diagnostic #450 ea 04/23/20 01/26/24 Rx blood-glucose sensor (Dexcom G6 #9 ea 05/19/23 01/26/24 Rx Sensor device) blood-glucose transmitter (Dexcom #1 ea 05/19/23 01/26/24 Rx G6 Transmitter device) insulin pump cart,automated,BT #45 ea 06/03/23 01/26/24 Rx (Omnipod 5 G6 Pods (Gen 5) subcutaneous cartridge) losartan 100 mg tablet 100 mg PO DAILY #90 tabs 10/06/23 01/26/24 Rx Humalog U-100 Insulin 100 unit/mL 100 unit subcut DAILY #90 mL 12/09/23 01/26/24 Rx subcutaneous solution (insulin lispro) [facility] Medical History Diabetes Essential hypertension Family History Grandmother Thyroid disorder Social History Smoking Status: Former smoker alcohol intake: never substance use type: does not use what type of physical activity do you participate in: none HPI HPI Chief Complaint: Diabetes Details: MARISOL HIGGINBOTHAM, is a 38 M who presents to the office today for evaluation and management of diabetes. A1C today is 6.9%, increased from 07/28/23 at 6.6%. He has gained 3 lbs. Currently using Omnipod 5 with Dexcom G6 CGM- he is pleased with system. He does report however that whenever he changes his pod, he notices increase in blood sugar that takes some time to come back down. He is not necessarily rotating pod site well. He tends to use right posterior arm. [place] report downloaded and reviewed- he is under reporting carbohydrates. Elevations noted post site change. Denies any significant episodes of hypoglycemia that have required assistance from others. BP today is 128/88, improved from 07/28/23 at 138/94. Currently taking losartan 100 mg once daily, reports increased effort on taking medication routinely. Hx of elevated cholesterol, he did not want to pursue stat at that time. He wanted to wait and re- evaluate after labs this fall. Denies any acute concerns. ROS Const Constitutional: Positive for other (ROS negative x10 body systems) Exam Const General: cooperative, healthy appearing, comfortable and no acute distress Nutritional Appearance: obese Orientation: alert, awake and oriented x3 HENOR Head: normal to inspection Ears: hearing grossly normal bilaterally Nose: external nose normal Face and sinus: normal facial exam Eyes General: appearance normal, both eyes and all related structures Alignment and Position: alignment normal Sclera: sclerae normal Neck Neck: normal visual inspection Carotids: normal carotid upstroke Chest Chest palpation inspection: normal inspection of the chest Resp Effort Inspection: normal respiratory effort, able to speak in complete sentences, symmetric chest movement, normal respiratory pattern, no audible wheezes and no cough Auscultation: Bilateral: Clear to Auscultation Cardio Rate: regular rate Rhythm: regular rhythm Heart Sounds: S1 normal and S2 normal Bruits: no carotid bruits GI Inspection: obesity Musc Cervical Spine: normal cervical lordosis Thoracic/Lumbar Spine: thoracic and lumbar spine normal to inspection Skin General: no rashes or lesions noted Lesions: no lesions Rashes: no rashes Trauma: no lacerations or abrasions Wounds: no wounds Neuro General: patient alert, patient awake and patient oriented x3 Cognition: normal cognition Speech: speech normal Gait: normal gait Extrem General: normal to inspection and no pedal edema Psych Appearance: grossly normal Mental Status: mental status grossly normal Mood: congruent mood Affect: normal affect Speech and Movement: speech and movement normal Attitude: cooperative Thought Process: normal Thought Content: normal Judgment: judgment good Resu (more content not included)... Normal [facility] Basophil percentageOrdered B y: Effie Barrientos on 01-10-2023 Bilirubin [Mass/Vol] 0.60 mg/dL 0.20-1.00 [facility] Comment on above: For patients on eltr ombopag therapy, use of Dimension [place] TBIL is not recommended. Chloride [Moles/Vol] 103 mmol/L 98-107 [facility] Cholesterol [Mass/Vol] 204 mg/dL <200 [facility] Comment on above: <200 mg/dL Desirable 200-240 mg/dL Borderline >240 mg/dL High Risk Glucose [Mass/Vol] 120 mg/dL 74-106 [facility] Comment on above: Fasting Glucose resu lt from 100 to 125 mg/dL suggests IMPAIRED HOMEOSTASIS per A.D.A. criteria. Potassium [Moles/Vol] 4.0 mmol/L 3.5-5.1 [facility] Protein [Mass/Vol] 7.4 g/dL 6.4-8.2 [facility] Sodium [Moles/Vol] 136 mmol/L 136-145 [facility] Triglyceride [Mass/Vol] 73 mg/dL <[address] [facility] Comment on above: The drugs N-Acetylcy steine and Metamizole may falsely depress this assay.Serum Triglycerides Reference Interval Normal <150 mg/dL Borderline high 150 - 199 mg/dL High 200 - 499 mg/dL Very High > or = 500 mg/dL Laboratory - Chemistry and C hemistry - challengeOrdered By: Effie Barrientos on 01-10-2023 ALP [Catalytic activity/Vol] 94 U/L 45-[address] [facility] ALT [Catalytic activity/Vol] 29 U/L 16-[address] [facility] CO2 [Moles/Vol] 29.0 mmol/L 21.0-32.[address] [facility] Globulin (S) [Mass/Vol] 3.9 g/dL 2.2-4.[address] [facility] Urea nitrogen/Creatinine [Mass ratio] 11.4 mg/mg 10-[address] [facility] Laboratory - Hematology and Cell countson 01-10-2023 HbA1c (Bld) [Mass fraction] 7.1 % 4.2-6.[address] [facility] MICROALBUMIN/CREATININE UR W RATIO (EXTERNAL)on 01-10-2023 Albumin/Creat Ratio [facility] Creatinine Urine 48.7 [facility] Microalbumin, Random urine [facility] No Panel InformationOrdered By: Effie Barrientos on 01-10-2023 Urine Microalbumin/Creatinin e Ratio TNP [facility] Comment on above: Test not performed Estimated GFR (MDRD) Amer 142 mL/min >[address] [facility] Comment on above: GFR Calc Estimated GFR (MDRD) Non-Af Amer 117 mL/min >[address] [facility] Comment on above: Non- GFR Calc Thyroid Stimulating Hormone (TSH) 1.92 uIU/mL 0.358-3.[address] [facility] Vitamin D 25-Hydroxy 36.7 ng/mL [facility] Comment on above: Vitamin D 25(OH) Sta tus Range Deficiency <20 ng/mL (50nmol/L) Insufficiency 20 - 30 ng/mL (50 - 75 nmol/L) Sufficiency 30 - 100 ng/mL (75 - 250 nmol/L) Toxicity >100 ng/mL (>250 nmol/L) Serum or plasma albumin ariella urement (mass/volume)Ordered By: Effie Barrientos on 01-10-2023 Albumin [Mass/Vol] 3.5 g/dL 3.2-5.0 [facility] Serum or plasma albumin/glob ulin mass ratioOrdered By: Effie Barrientos on 01-10-2023 Albumin/Globulin [Mass ratio] 0.9 {ratio} 0.9-2.[address] [facility] Serum or plasma calcium ariella urement (mass/volume)Ordered By: Effie Barrientos on 01-10-2023 Calcium [Mass/Vol] 8.9 mg/dL 8.5-10.1 [facility] Serum or plasma cholesterol in HDL measurement (mass/volume)Ordered By: Effie Barrientos on 01-10-2023 Cholesterol in HDL [Mass/Vol] 62 mg/dL >[address] [facility] Comment on above: The drugs N-Acetylcy steine and Metamizole may falsely depress this assay. Reference Range HDL <40 mg/dL Low HDL Cholesterol HDL >or= 60 mg/dL High HDL Cholesterol Serum or plasma cholesterol in VLDL measurement (mass/volume)Ordered By: Effie Barrientos on 01-10-2023 Cholesterol in VLDL [Mass/Vol] 15 mg/dL 5-[address] [facility] Serum or plasma creatinine m easurement (mass/volume)Ordered By: Effie Barrientos on 01-10-2023 Creatinine [Mass/Vol] 0.79 mg/dL 0.70-1.30 [facility] Comment on above: The validity of the calculated GFR & GFRAA in patients over 70 years has not been determined. Clinical correlation is essential. Serum or plasma low density lipoprotein (LDL) cholesterol measurement (mass/volume)Ordered By: Effie Barrientos on 01-10-2023 Cholesterol in LDL [Mass/Vol] 127 mg/dL 0-[address] [facility] Serum or plasma urea nitroge n measurement (mass/volume)Ordered By: Effie Barrientos on 01-10-2023 Urea nitrogen [Mass/Vol] 9 mg/dL 7-[address] [facility] Thin prep Papanicolaou smear with manual screeningOrdered By: Effie Barrientos on 01-10-2023 Thin prep Papanicolaou smear with manual screening < 5.0 mg/L NO RANGE EST. [facility] Thin prep Papanicolaou smear with manual screening 18 U/L 15-[address] [facility] Thin prep Papanicolaou smear with manual screening 4 5-[address] [facility] Urine creatinine measurement (mass/volume)Ordered By: Effie Barrientos on 01-10-2023 Creatinine (U) [Mass/Vol] 48.70 mg/dL NO RANGE EST. [facility] .Auto Diffon 05-04-2022 Basophil, Absolute 0.0 10 3/mcL Normal 0.0-0.2 [facility] ([place]) Comment on above: Performed By: #### D RYAN, TROPHS, BMP, GFR #### [address] [address] Basophils/100 WBC (Bld) 0.5 % Normal 0.0-2.5 [facility] ([place]) Comment on above: Performed By: #### D RYAN, TROPHS, BMP, GFR #### [address] [address] Eosinophil, Absolute 0.1 10 3/mcL Normal 0.0-0.4 [facility] ([place]) Comment on above: Performed By: #### Zoë RYAN, TROPHS, BMP, GFR #### [address] [address] Eosinophils/100 WBC (Bld) 1.1 % Normal 0.0-7.0 [facility] ([place]) Comment on above: Performed By: #### D RYAN, TROPHS, BMP, GFR #### [address] [address] Lymphocyte, Absolute 1.0 10 3/mcL Normal 0.8-3.9 [facility] ([place]) Comment on above: Performed By: #### D RYAN, TROPHS, BMP, GFR #### [address] [address] Lymphocytes/100 WBC (Bld) 15.1 % Normal 10.0-50.0 [facility] ([place]) Comment on above: Performed By: #### D RYAN TROPHS, BMP, GFR #### [address] [address] Monocyte, Absolute 0.5 10 3/mcL Normal 0.2-1.0 [facility] ([place]) Comment on above: Performed By: #### Zoë RYAN TROPHS, BMP, GFR #### [address] [address] Monocytes/100 WBC (Bld) 6.6 % Normal 1.7-13.0 [facility] ([place]) Comment on above: Performed By: #### Zoë DAVIS TROPHS, BMP, GFR #### [address] [address] Neutrophils/100 WBC (Bld) 76.7 % Normal 37.0-80.0 [facility] ([place]) Comment on above: Performed By: #### Zoë RYAN TROPHS, BMP, GFR #### [address] [address] .GFRon 05-04-2022 GFR Non- 108 ml/min/1.73sqm Normal [facility] ([place]) Comment on above: Result Comment: GFR Population mean for , Non- Americans Ages 20-29 = 116 mL/min/1.73 sq.m. Ages 30-39 = 107 mL/min/1.73 sq.m. Ages 40-49 = 99 mL/min/1.73 sq.m. Ages 50-59 = 93 mL/min/1.73 sq.m. Ages 60-69 = 85 mL/min/1.73 sq.m. Ages 70+ = 75 mL/min/1.73 sq.m. Chronic Kidney Disease: Less than 60 mL/min/1.73 square meters End Stage Renal Disease: Less than 15 mL/min/1.73 square meters Performed By: #### Zoë RYAN, TROPHS, BMP, GFR #### [address] [address] GFR 131 ml/min/1.73sqm Normal [facility] ([place]) Comment on above: Result Comment: GFR Population mean for , Non- Americans Ages 20-29 = 116 mL/min/1.73 sq.m. Ages 30-39 = 107 mL/min/1.73 sq.m. Ages 40-49 = 99 mL/min/1.73 sq.m. Ages 50-59 = 93 mL/min/1.73 sq.m. Ages 60-69 = 85 mL/min/1.73 sq.m. Ages 70+ = 75 mL/min/1.73 sq.m. Chronic Kidney Disease: Less than 60 mL/min/1.73 square meters End Stage Renal Disease: Less than 15 mL/min/1.73 square meters Performed By: #### JHONATAN DURAN, BMP, GFR #### [address] [address] .MDWon 05-04-2022 Monocyte Distribution Width 19.46 Normal 0.00-20.00 [facility] ([place]) Comment on above: Result Comment: For ED adult patients suspected of sepsis, MDW<=20.0 does not rule out sepsis or risk of sepsis Performed By: #### JHONATAN DURAN, BMP, GFR #### [address] [address] .NEUABSon 05-04-2022 Neutrophil, Absolute 5.2 10 3/mcL Normal 2.9-6.2 [facility] ([place]) Comment on above: Performed By: #### JHONATAN DURAN, BMP, GFR #### [address] [address] BMPon 05-04-2022 BUN/Creatinine Ratio 17 ratio Normal 7-27 [facility] ([place]) Comment on above: Performed By: #### JHONATAN DURAN, BMP, GFR #### [address] [address] Calcium [Mass/Vol] 9.4 mg/dL Normal 8.4-10.2 [facility] ([place]) Comment on above: Performed By: #### D RYAN, TROPHS, BMP, GFR #### [address] [address] Chloride [Moles/Vol] 100 mmol/L Normal 98-107 [facility] ([place]) Comment on above: Performed By: #### Zoë RYAN, TROPHS, BMP, GFR #### [address] [address] CO2 [Moles/Vol] 23 mmol/L Normal 22-29 [facility] ([place]) Comment on above: Performed By: #### Zoë RYAN, TROPHS, BMP, GFR #### [address] [address] Creatinine [Mass/Vol] 0.81 mg/dL Normal 0.70-1.30 [facility] ([place]) Comment on above: Performed By: #### Zoë RYAN, TROPHS, BMP, GFR #### [address] [address] Electrolyte Balance 12.0 mEq/L Normal 4.0-15.0 [facility] ([place]) Comment on above: Performed By: #### Zoë RYAN, TROPHS, BMP, GFR #### [address] [address] Glucose [Mass/Vol] 249 mg/dL High 70-105 [facility] ([place]) Comment on above: Performed By: #### Zoë RYAN, TROPHS, BMP, GFR #### [address] [address] Potassium [Moles/Vol] 3.6 mmol/L Normal 3.5-5.1 [facility] ([place]) Comment on above: Performed By: #### Zoë RYAN, TROPHS, BMP, GFR #### [address] [address] Sodium [Moles/Vol] 135 mmol/L Low 136-145 [facility] ([place]) Comment on above: Performed By: #### Zoë RYAN, TROPHS, BMP, GFR #### [address] [address] Urea nitrogen [Mass/Vol] 14 mg/dL Normal 7-18 [facility] ([place]) Comment on above: Performed By: #### Zoë RYAN, TROPHS, BMP, GFR #### [address] [address] CBCon 05-04-2022 Erythrocyte distribution width (RBC) [Ratio] 12.9 % Normal 11.5-14.5 [facility] ([place]) Comment on above: Performed By: #### Zoë RYAN, TROPHS, BMP, GFR #### [address] [address] Hematocrit (Bld) [Volume fraction] 43.3 % Normal 42.0-52.0 [facility] ([place]) Comment on above: Performed By: #### Zoë RYAN, TROPHS, BMP, GFR #### [place] [address] Hgb 14.8 G/dL Normal 14.0-18.0 [facility] ([place]) Comment on above: Performed By: #### Zoë RYAN, TROPHS, BMP, GFR #### [address] [address] MCH (RBC) [Entitic mass] 32.4 pg High 27.0-31.2 [facility] ([place]) Comment on above: Performed By: #### Zoë RYAN, TROPHS, BMP, GFR #### [place] [address] MCHC 34.2 G/dL Normal 31.8-35.4 [facility] ([place]) Comment on above: Performed By: #### Zoë RYAN, TROPHS, BMP, GFR #### [place] [id number] MCV (RBC) [Entitic vol] 94.7 fL High 80.0-94.0 [facility] ([place]) Comment on above: Performed By: #### Zoë RYAN, TROPHS, BMP, GFR #### [place] [id number] Platelet 272 10 3/mcL Normal 130-400 [facility] ([place]) Comment on above: Performed By: #### D RYAN, TROPHS, BMP, GFR #### [address] [address] Platelet mean volume (Bld) [Entitic vol] 8.0 fL Normal 7.4-10.4 [facility] ([place]) Comment on above: Performed By: #### D RYAN, TROPHS, BMP, GFR #### [address] [address] RBC 4.57 10 6/mcL Normal 4.04-6.13 [facility] ([place]) Comment on above: Performed By: #### D RYAN, TROPHS, BMP, GFR #### [place] [address] [address] WBC 6.8 10 3/mcL Normal 4.6-10.8 [facility] ([place]) Comment on above: Performed By: #### D RYAN, TROPHS, BMP, GFR #### [address] [address] [address] ANGIOGRAPHY CHEST W/CONTR Martha 05-04-2022 CT ANGIOGRAPHY CHEST W/CONTRAST ORIGINAL EXAMINATION: CTA OF THE CHEST 05/04/2022 11:31 am TECHNIQUE: CTA of the chest was performed after the administration of intravenous contrast. Multiplanar reformatted images are provided for review. MIP images are provided for review. Automated exposure control, iterative reconstruction, and/or weight based adjustment of the mA/kV was utilized to reduce the radiation dose to as low as reasonably achievable. COMPARISON: May 04, 2022 chest x-ray HISTORY: ORDERING SYSTEM PROVIDED HISTORY: Reason for Exam: chest pain; suspect PE FINDINGS: No osseous abnormality identified. The lungs are clear and there is no consolidation or pleural fluid identified. No mediastinal adenopathy. No pulmonary artery defect is present to indicate thromboembolism. No additional contributory abnormality seen. IMPRESSION: No evidence of pulmonary embolism or acute pulmonary abnormality. Interpreted by: Mark Anthony Rosenberg MD Preliminary Report By: Mark Anthony Rosenberg MD Electronically signed By Mark Anthony Rosenberg MD Dictated Date: 05/04/2022 11:37:53 AM Prelim Date: 05/04/2022 11:39:51 AM Sign Date: 05/04/2022 11:39:51 AM Ordering Provider: ADELINA Weiner [facility] ([place]) DIMERon 05-04-2022 D-Dimer 214 ng/mL D-DU Normal 0-230 [facility]) Comment on above: Result Comment: The result of the D-Dimer test should be evaluated in the context of all the clinical and laboratory data available. In those instances where the laboratory result does not agree with the clinical evaluation, additional tests should be performed accordingly. If the D-Dimer result is used to exclude DVT or PE, the recommended cutoff value is less than 230 ng/mL. The D-Dimer result should not be used alone to rule in DVT/PE, but should be used in conjunction with a clinical pretest probability (PTP)assessment model to exclude venous thromboembolism (VTE) in outpatients suspected of deep venous thrombosis (DVT) and pulmonary embolism (PE). Performed By: #### D RYAN, JHONATAN, BMP, GFR #### [place] [address] LABORATORYOrdered By: SYSTEM SYSTEM on 05-04-2022 Troponin I.cardiac DL <= 0.01 ng/mL [Mass/Vol] 6.6 ng/L Invalid Interpretation Code 0.0 - 76.2 ng/L AO ADM SS Calcium [Mass/Vol] 9.4 mg/dL Invalid Interpretation Code 8.4 - 10.2 mg/dL AO ADM SS Chloride [Moles/Vol] 100 mmol/L Invalid Interpretation Code 98 - 107 mmol/L AO ADM SS CO2 [Moles/Vol] 23 mmol/L Invalid Interpretation Code 22 - 29 mmol/L AO ADM SS Creatinine [Mass/Vol] 0.81 mg/dL Invalid Interpretation Code 0.70 - 1.30 mg/dL AO ADM SS Electrolyte Balance 12.0 mEq/L Invalid Interpretation Code 4.0 - 15.0 mEq/L AO ADM SS GFR 131 ml/min/1.73sqm Invalid Interpretation Code AO Chemistry S GFR Non- 108 ml/min/1.73sqm Invalid Interpretation Code AO Chemistry S Glucose [Mass/Vol] 249 mg/dL Invalid Interpretation Code 70 - 105 mg/dL AO ADM SS Potassium [Moles/Vol] 3.6 mmol/L Invalid Interpretation Code 3.5 - 5.1 mmol/L AO ADM SS Sodium [Moles/Vol] 135 mmol/L Invalid Interpretation Code 136 - 145 mmol/L AO ADM SS Troponin I.cardiac DL <= 0.01 ng/mL [Mass/Vol] 6.6 ng/L Invalid Interpretation Code 0.0 - 76.2 ng/L AO ADM SS Urea nitrogen [Mass/Vol] 14 mg/dL Invalid Interpretation Code 7 - 18 mg/dL AO ADM SS Urea nitrogen/Creatinine [Mass ratio] 17 ratio Invalid Interpretation Code 7 - 27 ratio AO ADM SS LABORATORYOrdered By: Alyssa Liao on 05-04-2022 Basophil, Absolute 0.0 103/mcL Invalid Interpretation Code 0.0 - 0.2 10^3/mcL AO Workflow SS Basophils/100 WBC (Bld) 0.5 % Invalid Interpretation Code 0.0 - 2.5 % AO Workflow SS Eosinophil, Absolute 0.1 103/mcL Invalid Interpretation Code 0.0 - 0.4 10^3/mcL AO Workflow SS Eosinophils/100 WBC (Bld) 1.1 % Invalid Interpretation Code 0.0 - 7.0 % AO Workflow SS Erythrocyte distribution width (RBC) [Ratio] 12.9 % Invalid Interpretation Code 11.5 - 14.5 % AO Workflow SS Fibrin D-dimer DDU (PPP) [Mass/Vol] 214 ng/mL D-DU Invalid Interpretation Code 0 - 230 ng/mL D-DU AO Coag SS Hematocrit (Bld) [Volume fraction] 43.3 % Invalid Interpretation Code 42.0 - 52.0 % AO Workflow SS Hemoglobin (Bld) [Mass/Vol] 14.8 G/dL Invalid Interpretation Code 14.0 - 18.0 G/dL AO Workflow SS Lymphocyte, Absolute 1.0 103/mcL Invalid Interpretation Code 0.8 - 3.9 10^3/mcL AO Workflow SS Lymphocytes/100 WBC (Bld) 15.1 % Invalid Interpretation Code 10.0 - 50.0 % AO Workflow SS MCH (RBC) [Entitic mass] 32.4 pg Invalid Interpretation Code 27.0 - 31.2 pg AO Workflow SS MCHC 34.2 G/dL Invalid Interpretation Code 31.8 - 35.4 G/dL AO Workflow SS MCV (RBC) [Entitic vol] 94.7 fL Invalid Interpretation Code 80.0 - 94.0 fL AO Workflow SS Monocyte distribution width Auto (Bld) [Entitic vol] 19.46 Invalid Interpretation Code 0.00 - 20.00 AO Workflow SS Comment on above: Result Comment: For ED adult patients suspected of sepsis, MDW<=20.0 does not rule out sepsis or risk of sepsis Monocyte, Absolute 0.5 103/mcL Invalid Interpretation Code 0.2 - 1.0 10^3/mcL AO Workflow SS Monocytes/100 WBC (Bld) 6.6 % Invalid Interpretation Code 1.7 - 13.0 % AO Workflow SS Neutrophil, Absolute 5.2 103/mcL Invalid Interpretation Code 2.9 - 6.2 10^3/mcL AO Workflow SS Neutrophils/100 WBC (Bld) 76.7 % Invalid Interpretation Code 37.0 - 80.0 % AO Workflow SS Platelet mean volume (Bld) [Entitic vol] 8.0 fL Invalid Interpretation Code 7.4 - 10.4 fL AO Workflow SS Platelets (Bld) [#/Vol] 272 103/mcL Invalid Interpretation Code 130 - 400 10^3/mcL AO Workflow SS RBC (Bld) [#/Vol] 4.57 106/mcL Invalid Interpretation Code 4.04 - 6.13 10^6/mcL AO Workflow SS WBC (Bld) [#/Vol] 6.8 103/mcL Invalid Interpretation Code 4.6 - 10.8 10^3/mcL AO Workflow SS TROPHSon 05-04-2022 Troponin I High Sensitivity 6.6 ng/L Normal 0.0-76.2 [facility] ([place]) Comment on above: Performed By: #### Zoë RYAN, TROPHS, BMP, GFR #### [address] [address] Troponin I High Sensitivity 6.6 ng/L Normal 0.0-76.2 [facility] ([place]) Comment on above: Performed By: #### D RYAN, TROPHS, BMP, GFR #### [place] [address] [place], [place] [address] XR CHEST 1 VIEWon 05-04-2022 XR CHEST 1 VIEW ORIGINAL EXAMINATION: ONE XRAY VIEW OF THE CHEST05/04/2022 10:06 am CHEST ONE VIEW AP/PA COMPARISON: None available time of interpretation. HISTORY: ORDERING SYSTEM PROVIDED HISTORY: Reason for Exam: chest pain FINDINGS: Heart size and vascularity are within normal limits. The lungs are clear of focal consolidation. No effusion, pneumothorax, or acute osseous abnormality. IMPRESSION: No radiographic evidence of acute cardiopulmonary process. Interpreted by: Mark Anthony Gomez MD Preliminary Report By: Mark Anthony Gomez MD Electronically signed By Mark Anthony Gomez MD Dictated Date: 05/04/2022 11:05:57 AM Prelim Date: 05/04/2022 11:06:14 AM Sign Date: 05/04/2022 11:06:14 AM Ordering Provider: ADELINA MASTERS [facility] ([place]) Basophil percentageon 2021 Bilirubin [Mass/Vol] 0.90 mg/dL 0.20-1.00 [facility] Work Phone: Comment on above: For patients on eltr ombopag therapy, use of Dimension [place] TBIL is not recommended. Chloride [Moles/Vol] 98 mmol/L 98-107 [facility] Work Phone: Cholesterol [Mass/Vol] 239 mg/dL <200 [facility] Work Phone: Comment on above: <200 mg/dL Desirable 200-240 mg/dL Borderline >240 mg/dL High Risk Glucose [Mass/Vol] 256 mg/dL 74-106 [facility] Work Phone: Comment on above: Glucose result great er than or equal to 200 mg/dLsuggests DIABETES MELLITUS per A.D.A. criteria. Potassium [Moles/Vol] 4.8 mmol/L 3.5-5.1 [facility] Work Phone: Protein [Mass/Vol] 7.6 g/dL 6.4-8.2 [facility] Work Phone: Sodium [Moles/Vol] 132 mmol/L 136-145 [facility] Work Phone: Triglyceride [Mass/Vol] 80 mg/dL [facility] Work Phone: Comment on above: The drugs N-Acetylcy steine and Metamizole may falsely depress this assay.Serum Triglycerides Reference Interval Normal <150 mg/dL Borderline high 150 - 199 mg/dL High 200 - 499 mg/dL Very High > or = 500 mg/dL Laboratory - Chemistry and C hemistry - challengeon 08-25-2021 ALP [Catalytic activity/Vol] 112 U/L 45-[address] [facility] Work Phone: ALT [Catalytic activity/Vol] 36 U/L 16-[address] [facility] Work Phone: CO2 [Moles/Vol] 28.0 mmol/L 21.0-32.[address] [facility] Work Phone: Globulin (S) [Mass/Vol] 4.0 g/dL 2.2-4.[address] [facility] Work Phone: Urea nitrogen/Creatinine [Mass ratio] 15.4 mg/mg 10-[address] [facility] Work Phone: Laboratory - Hematology and Cell countson 08-25-2021 HbA1c (Bld) [Mass fraction] 9.0 % [facility] Work Phone: No Panel Informationon 08-25 Estimated GFR (MDRD) Amer 146 mL/min >[address] [facility] Work Phone: Comment on above: GFR Calc Estimated GFR (MDRD) Non-Af Amer 121 mL/min >[address] [facility] Work Phone: Comment on above: Non- GFR Calc Thyroid Stimulating Hormone (TSH) 1.66 uIU/mL 0.358-3.[address] [facility] Work Phone: Urine Microalbumin/Creatinin e Ratio TNP [facility] Work Phone: Comment on above: Test not performed Vitamin D 25-Hydroxy 11.2 ng/mL [facility] Work Phone: Comment on above: Vitamin D 25(OH) Sta tus Range Deficiency <20 ng/mL (50nmol/L) Insufficiency 20 - 30 ng/mL (50 - 75 nmol/L) Sufficiency 30 - 100 ng/mL (75 - 250 nmol/L) Toxicity >100 ng/mL (>250 nmol/L) Serum or plasma albumin ariella urement (mass/volume)on 08-25-2021 Albumin [Mass/Vol] 3.6 g/dL 3.2-5.0 [facility] Work Phone: Serum or plasma albumin/glob ulin mass ratioon 08-25-2021 Albumin/Globulin [Mass ratio] 0.9 {ratio} 0.9-2.[address] [facility] Work Phone: Serum or plasma calcium ariella urement (mass/volume)on 08-25-2021 Calcium [Mass/Vol] 8.8 mg/dL 8.5-10.1 [facility] Work Phone: Serum or plasma cholesterol in HDL measurement (mass/volume)on 08-25-2021 Cholesterol in HDL [Mass/Vol] 72 mg/dL [facility] Work Phone: Comment on above: The drugs N-Acetylcy steine and Metamizole may falsely depress this assay. Reference Range HDL <40 mg/dL Low HDL Cholesterol HDL >or= 60 mg/dL High HDL Cholesterol Serum or plasma cholesterol in VLDL measurement (mass/volume)on 08-25-2021 Cholesterol in VLDL [Mass/Vol] 16 mg/dL 5-[address] [facility] Work Phone: Serum or plasma creatinine m easurement (mass/volume)on 08-25-2021 Creatinine [Mass/Vol] 0.78 mg/dL 0.70-1.30 [facility] Work Phone: Comment on above: The validity of the calculated GFR & GFRAA in patients over 70 years has not been determined. Clinical correlation is essential. Serum or plasma low density lipoprotein (LDL) cholesterol measurement (mass/volume)on 08-25-2021 Cholesterol in LDL [Mass/Vol] 151 mg/dL 0-[address] [facility] Work Phone: Serum or plasma urea nitroge n measurement (mass/volume)on 08-25-2021 Urea nitrogen [Mass/Vol] 12 mg/dL 7-[address] [facility] Work Phone: Thin prep Papanicolaou smear with manual screeningon 08-25-2021 Thin prep Papanicolaou smear with manual screening 23 U/L 15-[address] [facility] Work Phone: Thin prep Papanicolaou smear with manual screening 6 5-[address] [facility] Work Phone: Thin prep Papanicolaou smear with manual screening < 5.0 mg/L NO RANGE EST. [facility] Work Phone: Urine creatinine measurement (mass/volume)on 08-25-2021 Creatinine (U) [Mass/Vol] 37.30 mg/dL NO RANGE EST. [facility] Work Phone: VITAMIN D 25 ([place])on 08-26-19 Vitamin D 25 [place] 11.2 ng/mL Abnormal 30 - 100 ng/mL [facility] Vital Signs Date Time Vital Sign Value Performing Clinician Facility 12-04-2024 14:45-0400 Body height 182.[address] Greta Cohen MD Work Phone: [facility] 12-04-2024 14:45-0400 Body mass index (BMI) [Ratio] 37.8 kg/m2 Dr. Greta Cohen MD Work Phone: [facility] 12-04-2024 14:45-0400 Body weight 126.[address] Greta Cohen MD Work Phone: [facility] 12-04-2024 14:45-0400 Diastolic blood pressure 98 mm[Hg] Dr. Greta Cohen MD Work Phone: [facility] 12-04-2024 14:45-0400 Heart rate 107 /min Dr. Greta Cohen MD Work Phone: [facility] 12-04-2024 14:45-0400 SaO2% (BldA) [Mass fraction] 97 % Dr. Greta Cohen MD Work Phone: [facility] 12-04-2024 14:45-0400 Systolic blood pressure 130 mm[Hg] Dr. Greta Cohen MD Work Phone: [facility] 01-10-2023 13:16-0400 Body height 182.[address] Greta Cohen Work Phone: [facility] 01-10-2023 13:16-0400 Body mass index (BMI) [Ratio] 40.5 kg/m2 Dr. Greta Cohen Work Phone: 2(160)880-687916 [place] [address] 01-10-2023 13:16-0400 Body temperature 98.4 [degF] Dr. Greta Cohen Work Phone: 9(203)456-426316 [place] [address] 01-10-2023 13:16-0400 Body weight 135.[address] Greta Cohen Work Phone: 3(520)365-838616 [place] [address] 01-10-2023 13:16-0400 Diastolic blood pressure 80 mm[Hg] Dr. Greta Cohen Work Phone: 6(579)324-315616 [place] [address] 01-10-2023 13:16-0400 Heart rate 80 /min Dr. Greta Cohen Work Phone: 4(095)669-748416 [place] [address] 01-10-2023 13:16-0400 Respiratory rate 16 /min Dr. Greta Cohen Work Phone: 7(238)[phone] [place] [address] 01-10-2023 13:16-0400 SaO2% (BldA) [Mass fraction] 99 % Dr. Greta Cohen Work Phone: 0(265)722-988626 [place] [address] 01-10-2023 13:16-0400 Systolic blood pressure 136 mm[Hg] Dr. Greta Cohen Work Phone: [facility] 05-04-2022 12:25-0500 Body temperature 97.88 [degF] ADELINA MASTERS MD [facility] 05-04-2022 12:25-0500 Diastolic Blood Pressure Non-Invasive 84 1 ADELINA MASTERS MD [facility] 05-04-2022 12:25-0500 Heart rate 105 /min ADELINA MASTERS MD [facility] 05-04-2022 12:25-0500 Respiratory rate 14 /min ADELINA MASTERS MD [facility] 05-04-2022 12:25-0500 Systolic Blood Pressure Non-Invasive 109 1 ADELINA MASTERS MD [facility] 05-04-2022 11:13-0500 Body temperature 97.52 [degF] ADELINA MASTERS MD [facility] 05-04-2022 11:13-0500 Diastolic Blood Pressure Non-Invasive 86 1 ADELINA MASTESR MD [facility] 05-04-2022 11:13-0500 Heart rate 103 /min ADELINA MASTERS MD [facility] 05-04-2022 11:13-0500 Respiratory rate 16 /min ADELINA MASTERS MD [facility] 05-04-2022 11:13-0500 Systolic Blood Pressure Non-Invasive 115 1 ADELINA MASTERS MD [facility] 05-04-2022 10:30-0500 Diastolic Blood Pressure Non-Invasive 90 1 ADELINA MASTERS MD [facility] 05-04-2022 10:30-0500 Heart rate 96 /min ADELINA MASTERS MD [facility] 05-04-2022 10:30-0500 Respiratory rate 12 /min ADELINA MASTERS MD [facility] 05-04-2022 10:30-0500 Systolic Blood Pressure Non-Invasive 122 1 ADELINA MASTERS MD [facility] 05-04-2022 09:45-0500 Heart rate 99 /min ADELINA MASTERS MD [facility] 05-04-2022 08:46-0500 Body height 182.9 cm ADELINA MASTERS MD [facility] 05-04-2022 08:46-0500 Body temperature 97.7 [degF] ADELINA MASTERS MD [facility] 05-04-2022 08:46-0500 Body weight 118.2 kg ADELINA MASTERS MD [facility] 05-04-2022 08:46-0500 Heart rate 122 /min ADELINA MASTERS MD [facility] 08-25-2021 08:06-0400 Body height 182.[address] Greta Cohen Work Phone: [facility] Work Phone: 08-25-2021 08:06-0400 Body mass index (BMI) [Ratio] 36.5 kg/m2 Dr. Greta Cohen Work Phone: [facility] Work Phone: 08-25-2021 08:06-0400 Body temperature 96 [degF] Dr. Greta Cohen Work Phone: [facility] Work Phone: 08-25-2021 08:06-0400 Body weight 122.[address] Greta Cohen Work Phone: [facility] Work Phone: 08-25-2021 08:06-0400 Diastolic blood pressure 100 mm[Hg] Dr. Greta Cohen Work Phone: [facility] Work Phone: 08-25-2021 08:06-0400 Heart rate 94 /min Dr. Greta Cohen Work Phone: [facility] Work Phone: 08-25-2021 08:06-0400 Respiratory rate 18 /min Dr. Greta Cohen Work Phone: [facility] Work Phone: 08-25-2021 08:06-0400 SaO2% (BldA) [Mass fraction] 100 % Dr. Greta Cohen Work Phone: [facility] Work Phone: 08-25-2021 08:06-0400 Systolic blood pressure 150 mm[Hg] Dr. Greta Cohen Work Phone: [facility] Work Phone: Encounters Encounter Date Encounter Type Care Provider Facility Start: 12-04-2024 End: 12-04-[address] Nav Sharma MD [facility] Work Phone: Start: 12-04-2024 End: 12-04-[address] Greta Cohen MD Work Phone: -[facility] Start: 12-04-2024 End: 12-04-2024 ambulatory [facility] Facility:[facility] Start: 07-26-2024 ambulatory Greta Cohen Facility :[facility] Start: 01-26-2024 End: 01-26-2024 ambulatory Greta Cohen Facility:[facility] Start: 01-11-2023 Chart abstracting Greta vazquez MD Work Phone: [facility] Comment on above: ext document Start: 01-10-2023 Chart abstracting Greta vazquez MD Work Phone: [facility] Comment on above: ext document Start: 01-10-2023 End: 01-10-[address] Greta Cohen Work Phone: [facility] Work Phone: Start: 01-10-2023 End: 01-10-[address] Greta Cohen Work Phone: [facility] Work Phone: Start: 08-26-2022 Chart abstracting Greta vazquez MD Work Phone: [facility] Comment on above: Outside Endocrinolog y Start: 05-04-2022 End: 05-04-2022 Emergency department patient visit ADELINA MASTERS MD Facility:[facility] Start: 05-04-2022 End: 05-04-2022 Emergency department patient visit ADELINA MASTERS MD [facility] Start: 08-25-2021 Chart abstracting Greta vazquez MD Work Phone: [facility] Comment on above: Outside Labs Results Start: 08-25-2021 End: 08-25-[address] Greta Cohen Work Phone: [facility] Endocrinology Start: 07-24-2021 ambulatory Issac baez LPN [facility] Start: 07-21-2018 Ophthalmic examinati on and evaluation Issac Sherwood LPN [facility] Work Phone: Procedures Date Procedure Procedure Detail Performing Clinician Start: 01-10-2023 Hemoglobin A1c/Hemoglobin.total in Blood [facility] Start: 01-10-2023 MICROALBUMIN/CREATIN INE UR W RATIO (EXTERNAL) [facility] Provider Start: 08-25-2021 VITAMIN D 25 ([place]) [facility] P rovider Start: 06-28-2018 Adult depression scr eening assessment Issac Sherwood LPN Plan of Treatment Date Care Activity Detail Author Start: 01-11-2024 Hepatitis B screening Urine Albumin:Creatinine Ratio [facility] Start: 11-08-2023 Urine microalbumin profile [facility] Start: 07-11-2023 Hemoglobin A1c/Hemoglobin.total in Blood HBA1C [facility] Start: 12-31-2022 Influenza vaccination [facility] Start: 05-02-2022 DEPRESSION ASSESSMENT DEPRESSION ASSESSMENT [facility] Start: 02-24-2022 Hemoglobin A1c/Hemoglobin.total in Blood HBA1C [facility] Start: 12-31-2021 Influenza vaccination INFLUENZA (Season Ended) [facility] Start: 12-31-2020 Influenza vaccination INFLUENZA (#1) [facility] Start: 05-22-2020 Hepatitis B screening URINE ALBUMIN:CREATININE RATIO [facility] Start: 07-22-2019 Hepatitis C antibody, confirmatory test DILATED RETINAL EXAM [facility] Start: 06-28-2019 3 comp foot exam completed DIABETIC FOOT EXAM [facility] Start: 06-28-2019 Adult depression screening assessment DEPRESSION SCREENING [facility] Start: 06-28-2019 ANNUAL PCP TEAM CHRONIC DISEASE VISIT ANNUAL PCP TEAM CHRONIC DISEASE VISIT [facility] Start: 06-28-2019 Hepatitis B surface antibody level LDL CHOLESTEROL [facility] Start: 09-25-2018 Hemoglobin A1c/Hemoglobin.total in Blood HBA1C [facility] Start: 1991 COVID-19 VACCINE (1) COVID-19 VACCINE (1) [facility] Start: 1986 COVID-19 VACCINE (#1) COVID-19 VACCINE (#1) [facility] Start: 1986 HEPATITIS B (1 of 3 - 3-dose series) HEPATITIS B (1 of 3 - 3-dose series) [facility] Start: 1986 Hepatitis B Vaccine (1 of 3 - 3-dose series) Hepatitis B Vaccine (1 of 3 - 3-dose series) [facility] Alanine aminotransfe rase [Enzymatic activity/volume] in Serum or Plasma [facility] Albumin [Mass/volume ] in Serum or Plasma [facility] Alkaline phosphatase [Enzymatic activity/volume] in Serum or Plasma [facility] Anion gap in Serum o r Plasma [facility] Bilirubin, total measurement [facility] BUN/Creatinine ratio [facility] Calcium [Mass/volume ] in Serum or Plasma [facility] Carbon dioxide, tota l [Moles/volume] in Central venous blood [facility] Cholesterol [Mass/vo lume] in Serum or Plasma [facility] Cholesterol in HDL [Mass/volume] in Serum or Plasma [facility] Creatinine [Mass/vol ume] in Serum or Plasma [facility] Creatinine [Mass/vol ume] in Urine collected for unspecified duration [facility] Glucose [Mass/volume ] in Serum or Plasma [facility] Low density lipoprot ein cholesterol measurement [facility] Measurement of renal function [facility] Microalbumin [Mass/v olume] in Urine [facility] Potassium measurement [facility] Serum chloride measurement [facility] Sodium measurement [facility] Thyroid stimulating hormone measurement [facility] Total cholesterol:HD L ratio measurement [facility] Total protein measurement [facility] Triglycerides measurement [facility] Urea nitrogen [Mass/ volume] in Serum or Plasma [facility] Urine microalbumin/creatinine ratio measurement [facility] VLDL cholesterol [facility] Immunizations Immunization Date Immunization Notes Care Provider Fa ben 08-29-2014 pneumococcal conjuga te vaccine, 13 valent Issac Sherwood SERVICES MANAGER [facility] Work Phone: 11-07-2013 tetanus toxoid, redu pj diphtheria toxoid, and acellular pertussis vaccine, adsorbed Issac Sherwood SERVICES MANAGER [facility] Work Phone: Payers Date Payer Category Payer Self-pay [id number] 2022 Unknown [id number] 2018 Unknown MMO MMO [employer]US [id number] 2018-Present [phone] [address] [place] [id number] PPO [id number] 2018 Unknown MMO MMO [employer] PPO [id number] 2018-Present [phone] [address] [place] [id number] PPO [id number] 1986 Unknown [id number] Unknown [id number] Unknown [id number] Unknown [id number] Unknown [id number] Unknown [id number] Social History Date Type Detail Facility Start: 12-03-2013 [facility] Start: 12-03-2013 History of tobacco use Cigarette Smo ker [facility] Start: 10-05-2017 End: 09-18-2021 Cigarettes smoked current (pack per day) - Reported 0.5 [facility] Start: 10-05-2017 Tobacco use and exposure Former smokeless tobacco user [facility] Start: 04-02-2019 Alcohol intake Current drinke r of alcohol (finding) [facility] Start: 12-24-2013 Tobacco Comment e cigarettes [facility] Start: 1985 Sex Assigned At Not on file C [facility] Start: 07-14-2021 End: 07-24-2021 Exposure to SARS-CoV-2 (event) Not sure [facility] Start: 08-25-2021 End: 01-10-2023 Tobacco smoking status SDIS Unknown if ever smoked [facility] Start: 12-30-2013 Heavy [facility] Start: 12-30-2013 None [facility] Start: 12-30-2013 With Family [facility] Start: 12-30-2013 Non-smoker [facility] Start: 1985 Sex Assigned At Male [facility] Sex Assigned At Sex [facility] Start: 04-02-2019 End: 09-18-2021 Tobacco use panel [facility] Adult Depression Screening Assessment 0 [facility] Start: 07-28-2023 [facility] (finding[facility] Medical Equipment Procedure Code Equipment Code Equipment Origin al Text Equipment Identifier Dates Start: 12-24-2015 Comment on above: testing blood sugars 3-4 times daily Checking blood sugar s 3-4 times daily USE WITH insulin 4-5 daily Pen Needle, Diabetic (Bd Ultra-Fine Ave Pen Needle) 32 gauge x 5/32 needle Start: 08-25-2021 Pen Needle, Diabetic (Bd Ultra-Fine Ave Pen Needle) 32 gauge x 5/32 needle Start: 04-21-2020 End: 08-25-2021 Pen Needle, Diabetic (Bd Ultra-Fine Ave Pen Needle) 32 gauge x 5/32 needle Start: 04-21-2020 End: 08-25-2021 Pen Needle, Diabetic (Bd Ultra-Fine Ave Pen Needle) 32 gauge x 5/32 needle Start: 08-25-2021 End: 08-26-2022 Blood Sugar Diagnostic strip Start: 04-23-2020 Pen Needle, Diabetic (Bd Ultra-Fine Ave Pen Needle) 32 gauge x 5/32 needle Start: 04-21-2020 End: 08-25-2021 Pen Needle, Diabetic (Bd Ultra-Fine Ave Pen Needle) 32 gauge x 5/32 needle Start: 08-25-2021 End: 08-26-2022 Blood Sugar Diagnostic strip Start: 04-23-2020 Pen Needle, Diabetic (Bd Ultra-Fine Ave Pen Needle) 32 gauge x 5/32 needle Start: 04-21-2020 End: 08-25-2021 Pen Needle, Diabetic (Bd Ultra-Fine Ave Pen Needle) 32 gauge x 5/32 needle Start: 08-25-2021 End: 08-26-2022 Functional Status Date Assessment Result Facility 05-04-2022 Functional Status Room check performed [facility] 05-04-2022 [facility] Mental Status Date Assessment Result Facility 05-04-2022 Mental Status Orientation Oriented x 4 [facility] 05-04-2022 Mental Status [facility] Clinical Notes 07-24-2021 to 01-11-2023 Mana Prince Ma - 01/11/2023 11:37 AM Mana Elizalde Ma - 01/10/2023 2:14 PM EDLicha Sherwood LPN - 08/26/2022 2:44 PM EDLicha Sherwood LPN - 08/25/2021 2:14 PM EDT Note Date & Type Note Facility 01-11-2023 Note HNO ID: [id number] Author: Mana Prince Ma Service: ? Author Type: ? Type: Progress Notes Filed: 01/11/2023 11:56 AM Note Text: View External Labs - Miscellaneous Lab [ID [id number]] [facility] 01-11-2023 History of Present illness Narrative View External Labs - Miscellaneous Lab [ID [id number]] documented in this encounter [facility] 01-10-2023 Note HNO ID: [id number] Author: Mana Prince Ma Service: ? Author Type: ? Type: Progress Notes Filed: 01/10/2023 3:41 PM Note Text: Scan on 01/10/2023 1:54 PM by ProviderNarciso PA-C: Consultation - Endocrinology [facility] 01-10-2023 History of Present illness Narrative Scan on 01/10/2023 1:54 PM by ProviderNarciso PA-C: Consultation - Endocrinology documented in this encounter [facility] 08-26-2022 Note HNO ID: [id number] Author: Issac Sherwood LPN Service: ? Author Type: ? Type: Progress Notes Filed: 08/26/2022 10:25 PM Note Text: Scan on 08/26/2022 1:10 PM by External ProviderHARINDER: Consultation - Endocrinology [facility] 08-26-2022 History of Present illness Narrative Scan on 08/26/2022 1:10 PM by External ProviderHARINDER: Consultation - Endocrinology documented in this encounter [facility] 05-04-2022 Hospital Discharge instructions Patient Education 05/04/2022 11:52:12 Chest Pain, Uncertain Cause Uncertain Causes of Chest Pain Chest pain can happen for a number of reasons. Sometimes the cause can't be determined. If your condition does not seem serious, and your pain does not appear to be coming from your heart, your healthcare provider may recommend watching it closely. Sometimes the signs of a serious problem take more time to appear. Many problems not related to your heart can cause chest pain. These include: Musculoskeletal. Costochondritis is an inflammation of the tissues around the ribs that can occur from trauma or overuse injuries, or a strain of the muscles of the chest wall Respiratory. Pneumonia, collapsed lung (pneumothorax), or inflammation of the lining of the chest and lungs (pleurisy) Gastrointestinal. Esophageal reflux, heartburn, ulcers, or gallbladder disease Anxiety and panic disorders Nerve compression and inflammation Rare miscellaneous problems such as aortic aneurysm (a swelling of the large artery coming out of the heart) or pulmonary embolism (a blood clot in the lungs) Home care After your visit, follow these recommendations: Rest today and avoid strenuous activity. Take any prescribed medicine as directed. Be aware of any recurrent chest pain and notice any changes Follow-up care Follow up with your healthcare provider if you do not start to feel better within 24 hours, or as advised. Call 911 Call 911 if any of these occur: A change in the type of pain: if it feels different, becomes more severe, lasts longer, or begins to spread into your shoulder, arm, neck, jaw or back Shortness of breath or increased pain with breathing Weakness, dizziness, or fainting Rapid heart beat Crushing sensation in your chest When to seek medical advice Call your healthcare provider right away if any of the following occur: Cough with dark colored sputum (phlegm) or blood Fever of 100.4 F (38 C) or higher, or as directed by your healthcare provider Swelling, pain or redness in one leg [id number] [employer] [place] [address]. All rights reserved. This information is not intended as a substitute for professional medical care. Always follow your healthcare professional's instructions. Follow Up Care 05/04/2022 08:31:29 With:GRETA COHEN MD Address: [address] [place] [phone]- When:2-4 days [facility] 05-04-2022 Note Discharge Instructions Thank you for allowing [facility] to assist you with your healthcare needs. The following is important discharge information regarding your hospital visit. Diagnosis from Today's Visit Chest pain Chest pain What to Do Next Instructions from Your Care Team Discharge Return to Work, School, or Sports (Return to Work, School, or Sports) - Ordered -- 05/04/22, 05/05/22, May return to: work, 05/04/22 11:51:00 EST Post Acute Orders No qualifying data available. You Need to Schedule the Following Appointments Follow Up with GRETA COHEN MD When Within 2-4 days Where: [address] [place] [address]- Allergies tetracycline Medications Please ask your primary doctor or pharmacist before taking any other medication not listed, including over the counter drugs, herbal medications, vitamins and or supplements as they may interact with your home medications. What How Much When Why Instructions Last Dose New naproxen (naproxen 500 mg oral tablet) 1 tab(s) by mouth Two (2) times a day as needed for as needed for pain Chest pain Printed Prescription Unchanged insulin aspart (Novolog) (NovoLOG) Subcutaneous Three (3) times a day before meals Unchanged insulin glargine (Lantus) Subcutaneous Please take this list to your next doctor s visit. Bring all medications you take, including over the counter medications, herbals and other supplements with you to your doctor s visit. Patients and families are reminded to discard old lists and to update any records with all medication providers or retail pharmacies. Education Materials Uncertain Causes of Chest Pain Chest pain can happen for a number of reasons. Sometimes the cause can't be determined. If your condition does not seem serious, and your pain does not appear to be coming from your heart, your healthcare provider may recommend watching it closely. Sometimes the signs of a serious problem take more time to appear. Many problems not related to your heart can cause chest pain. These include: Musculoskeletal. Costochondritis is an inflammation of the tissues around the ribs that can occur from trauma or overuse injuries, or a strain of the muscles of the chest wall Respiratory. Pneumonia, collapsed lung (pneumothorax), or inflammation of the lining of the chest and lungs (pleurisy) Gastrointestinal. Esophageal reflux, heartburn, ulcers, or gallbladder disease Anxiety and panic disorders Nerve compression and inflammation Rare miscellaneous problems such as aortic aneurysm (a swelling of the large artery coming out of the heart) or pulmonary embolism (a blood clot in the lungs) Home care After your visit, follow these recommendations: Rest today and avoid strenuous activity. Take any prescribed medicine as directed. Be aware of any recurrent chest pain and notice any changes Follow-up care Follow up with your healthcare provider if you do not start to feel better within 24 hours, or as advised. Call 911 Call 911 if any of these occur: A change in the type of pain: if it feels different, becomes more severe, lasts longer, or begins to spread into your shoulder, arm, neck, jaw or back Shortness of breath or increased pain with breathing Weakness, dizziness, or fainting Rapid heart beat Crushing sensation in your chest When to seek medical advice Call your healthcare provider right away if any of the following occur: Cough with dark colored sputum (phlegm) or blood Fever of 100.4 F (38 C) or higher, or as directed by your healthcare provider Swelling, pain or redness in one leg [phone] [employer] [place] [address]. All rights reserved. This information is not intended as a substitute for professional medical care. Always follow your healthcare professional's instructions. Additional Information VACCINATE! IT SAVES LIVES! Members of the community who have not yet received the COVID-19 vaccine and would like to receive it can visit one of [facility] vaccine clinics. There are many vaccine clinic locations within the [facility]. For locations and available times, please visit [email or web address]. It is important to note that some COVID mobile vaccine clinics are held outdoors and may be canceled in rainy or stormy conditions. To learn more about pediatric vaccinations (ages 5-11), we invite you to visit the [facility] webpage. [email or web address] To learn more about the COVID-19 vaccine, we invite you to visit the [facility] website for a list of frequently asked questions. [email or web address] [facility] Patient Portal Access Instructions: Stay connected with your healthcare team and access your personal medical information anytime with the [facility] Patient Portal. If you would like a full copy of your medical records please contact the [facility] Medical Records Department Tuesday through Tuesday between 8a.m. and 4:30p.m. Please follow the directions below to access the portal: 1.Access the email account you provided upon registration to the [facility].2.Look for an invitation email from [facility].3.Open the email and access the invitation link: Accept Invitation to [facility].Fill in the required alexis to create your account. Sign into [email or web address] with your username and password that you created in the above steps to stay up to date. You can then view a summary of results, a summary of your visits, and the ability to download your summaries to your computer or send the information securely to a physician. Remember that your healthcare information is confidential, so carefully consider who you will allow to register on the [facility] Patient Portal for access to your information. You can also access the [facility] Patient Portal on the [employer] Pro[employer]. Simply click on Health Records under Health Data and then click on the [employer] logo. HOW TO SAFELY DISPOSE OF PRESCRIPTION MEDICATIONS Please use one of the following methods to safely dispose of your unused medications. 1.Use a drug disposal kit: the drug disposal pouch allows you to safely discard your old and unused drugs. Ask your nurse to give you one when you are discharged.2.Visit a local take-back location: Many local pharmacies and police departments have programs that collect old and unwanted prescription drugs. Call your local pharmacy or go to http://Bling Nation.Zubican/3K0Aa2l to find one close to you.3.Make use of household items: Use cat litter or old coffee grounds to dispose medications if other options are not available. Mix your drugs with these household products, seal them in an airtight container and throw it into the garbage. Call [facility]: [phone] to be sure your drugs can be disposed of in this way. Some medicines may require a different approach.4.Never flush your medications down the toilet. IF YOU HAVE BEEN PRESCRIBED AN OPIOIDS FOR PAIN If you have been prescribed an opioid (such as hydrocodone, oxycodone or morphine), it is critical to understand the possible side effects and risks of opioid pain medications. Even when taken as directed, opioids can have several side effects including: Tolerance, meaning you might need to take more of a medication for the same pain relief. Nausea, vomiting and/or constipation. Sleepiness, dizziness, dry mouth, confusion, depression or itching. Physical dependence, meaning you have withdrawal symptoms when a medication is stopped ? this can develop within a few days. KNOW YOUR RESPONSIBILITIES It is important to know exactly how much and how often to take the opioid pain medications you are prescribed. Never take opioids in higher amounts or more often than prescribed. Do not combine opioids with alcohol or other drugs that cause drowsiness, such as benzodiazepines, also known as benzos, including diazepam and alprazolam, muscle relaxants or sleep aids. Never sell or share prescription opioids. This is illegal. Store opioids in a secure place and out of reach of others (including children, family, friends and visitors). The last page(s) of this document has been signed and retained as a CHART COPY Signatures Patient Education Materials Chest Pain, Uncertain Cause Medication Leaflets My discharge plan and instructions have been reviewed and explained to me and I,MARISOL HIGGINBOTHAM understand my current condition and have read and understand these discharge instructions. I have received a written copy of the plan/instructions. If I have questions, I am aware that I should contact my doctor. Patient/Web Press Jogger Signature: Date/Time: Relationship to Patient: Witness Name/Signature: Date/Time: [facility] 05-04-2022 Note ORIGINAL EXAMINATION: CTA OF THE CHEST 05/04/2022 11:31 am TECHNIQUE: CTA of the chest was performed after the administration of intravenous contrast. Multiplanar reformatted images are provided for review. MIP images are provided for review. Automated exposure control, iterative reconstruction, and/or weight based adjustment of the mA/kV was utilized to reduce the radiation dose to as low as reasonably achievable. COMPARISON: May 04, 2022 chest x-ray HISTORY: ORDERING SYSTEM PROVIDED HISTORY: Reason for Exam: chest pain; suspect PE FINDINGS: No osseous abnormality identified. The lungs are clear and there is no consolidation or pleural fluid identified. No mediastinal adenopathy. No pulmonary artery defect is present to indicate thromboembolism. No additional contributory abnormality seen. IMPRESSION: No evidence of pulmonary embolism or acute pulmonary abnormality. Interpreted by: Mark Anthony Rosenberg MD Preliminary Report By: Mark Anthony Rosenberg MD Electronically signed By Mark Anthony Rosenberg MD Dictated Date: 05/04/2022 11:37:53 AM Prelim Date: 05/04/2022 11:39:51 AM Sign Date: 05/04/2022 11:39:51 AM Ordering Provider: [facility] 05-04-2022 Note ORIGINAL EXAMINATION: ONE XRAY VIEW OF THE CHEST05/04/2022 10:06 am CHEST ONE VIEW AP/PA COMPARISON: None available time of interpretation. HISTORY: ORDERING SYSTEM PROVIDED HISTORY: Reason for Exam: chest pain FINDINGS: Heart size and vascularity are within normal limits. The lungs are clear of focal consolidation. No effusion, pneumothorax, or acute osseous abnormality. IMPRESSION: No radiographic evidence of acute cardiopulmonary process. Interpreted by: Mark Anthony Gomez MD Preliminary Report By: Mark Anthony Gomez MD Electronically signed By Mark Anthony Gomez MD Dictated Date: 05/04/2022 11:05:57 AM Prelim Date: 05/04/2022 11:06:14 AM Sign Date: 05/04/2022 11:06:14 AM Ordering Provider: [facility] 05-04-2022 Note ORIGINAL EXAMINATION: CTA OF THE CHEST 05/04/2022 11:31 am TECHNIQUE: CTA of the chest was performed after the administration of intravenous contrast. Multiplanar reformatted images are provided for review. MIP images are provided for review. Automated exposure control, iterative reconstruction, and/or weight based adjustment of the mA/kV was utilized to reduce the radiation dose to as low as reasonably achievable. COMPARISON: May 04, 2022 chest x-ray HISTORY: ORDERING SYSTEM PROVIDED HISTORY: Reason for Exam: chest pain; suspect PE FINDINGS: No osseous abnormality identified. The lungs are clear and there is no consolidation or pleural fluid identified. No mediastinal adenopathy. No pulmonary artery defect is present to indicate thromboembolism. No additional contributory abnormality seen. IMPRESSION: No evidence of pulmonary embolism or acute pulmonary abnormality. Interpreted by: Mark Anthony Rosenberg MD Preliminary Report By: Mark Anthony Rosenberg MD Electronically signed By Mark Anthony Rosenberg MD Dictated Date: 05/04/2022 11:37:53 AM Prelim Date: 05/04/2022 11:39:51 AM Sign Date: 05/04/2022 11:39:51 AM Ordering Provider: [facility] 05-04-2022 Note ORIGINAL EXAMINATION: ONE XRAY VIEW OF THE CHEST05/04/2022 10:06 am CHEST ONE VIEW AP/PA COMPARISON: None available time of interpretation. HISTORY: ORDERING SYSTEM PROVIDED HISTORY: Reason for Exam: chest pain FINDINGS: Heart size and vascularity are within normal limits. The lungs are clear of focal consolidation. No effusion, pneumothorax, or acute osseous abnormality. IMPRESSION: No radiographic evidence of acute cardiopulmonary process. Interpreted by: Mark Anthony Gomez MD Preliminary Report By: Mark Anthony Gomez MD Electronically signed By Mark Anthony Gomez MD Dictated Date: 05/04/2022 11:05:57 AM Prelim Date: 05/04/2022 11:06:14 AM Sign Date: 05/04/2022 11:06:14 AM Ordering Provider: [facility] 08-25-2021 History of Present illness Narrative Vit d ordered by Dr Sharma. Sent as FYI Scan on 08/25/2021 1:32 PM by External Provider: Chemistry documented in this encounter [facility] 07-24-2021 History of Present illness Narrative POPULATION HEALTH NAVIGATION OUTREACH Action/FYI Scheduled for physical with pcp 09/18/21 Pt identified by name and : YES, via phone Outreach Outcome/Action Spoke to patient or caregiver: Patient scheduled Reason for Outreach Care Gap or Scheduling/Wellness visits Payer: Payor: MMO / Plan: MMO [employer] / Product Type: PPO / Care Gap Reviewed:: Annual Wellness visit Reminder: Reminder note to check Health Maintenance for items below Health Maintenance items due: COVID-19 VACCINE(1) Never done HBA1C due on 09/25/2018 LDL CHOLESTEROL due on 06/28/2019 DIABETIC FOOT EXAM due on 06/28/2019 ANNUAL PCP TEAM CHRONIC DISEASE VISIT due on 06/28/2019 DEPRESSION SCREENING due on 06/28/2019 DILATED RETINAL EXAM due on 07/22/2019 URINE ALBUMIN:CREATININE RATIO due on 05/22/2020 INFLUENZA(1) Never done Message Sent to Practice: No Navigation Signature: Issac Sherwood LPN July 24, 2021 12:56 PM documented in this encounter [facility] Evaluation + Plan note No data available for this section [facility] Evaluation note Diagnosis Onset Date Essential hypertension acute Diabetes chronic History of tobacco use chron ic Obesity [facility] Work Phone: Evaluation note* Diagnosis Onset Date Resolution Status Essential hypertension chron ic Obesity chronic Type 1 diabetes mellitus with hyperglycemia [facility] Work Phone: Evaluation noteNo assessment information available [facility] Work Phone: Reason for referral (narrative)No reason for referral [facility] Work [facility]: Chief Complaint and Reason for Visit Chief Complaint 1 Y FU+ Reason for Visit Essential hypertensi on Diabetes History of tobacco use Obesity Chief Complaint 6 M FU EORDER Reason for Visit Essential hypertensi on Obesity Type 1 diabetes mellitus with hyperglycemia Chief Complaint Admit Date 11 M FU December 04, 2024 2:4 5pm Advance Directives No Advanced Directives Records Found Advance Directive Response Recorded Date/ Time Advance Directives No December 30, 2013 6:33pm Living Will No July 27, 2017 6:18am Power of Children'S Ministry Director No July 27 6:18am Advance Directive Response Recorded Date/ Time Advance Directives No December 30, 2013 6:33pm Summary Purpose Family History No Family History Records Found Additional Source Comments Source Comments (unrecognize d section and content) In the event this informatio n is protected by the Federal Confidentiality of Alcohol and Drug Abuse Patient Records regulations: The Federal rules restrict any use of the information to criminally investigate or prosecute any alcohol or drug abuse patient.[facility] the event this information is protected by the Federal Confidentiality of Alcohol and Drug Abuse Patient Records regulations: The Federal rules restrict any use of the information to criminally investigate or prosecute any alcohol or drug abuse patient.[facility] HospitalIn the event this information is protected by the Federal Confidentiality of Alcohol and Drug Abuse Patient Records regulations: The Federal rules restrict any use of the information to criminally investigate or prosecute any alcohol or drug abuse patient.[facility] Hospital[facility] the event this information is protected by the Federal Confidentiality of Alcohol and Drug Abuse Patient Records regulations: The Federal rules restrict any use of the information to criminally investigate or prosecute any alcohol or drug abuse patient.[facility] Hospital[facility] the event this information is protected by the Federal Confidentiality of Alcohol and Drug Abuse Patient Records regulations: The Federal rules restrict any use of the information to criminally investigate or prosecute any alcohol or drug abuse patient.[facility] Care Teams (unrecognized sec tion and content) Store Planner Relationship Specialty Start Date End Date Greta Cohen MD [address] [place], [place] [id number] PCP - General Family Practice 11/07/13 Store Planner Relationship Specialty Start Date End Date Greta Cohen MD [address] [place] [address] PCP - General Family Practice 11/07/13 Store Planner Relationship Specialty Start Date End Date Greta Cohen MD [address] [place] [address] PCP - General Family Medicine 11/07/13 Store Planner Relationship Specialty Start Date End Date Greta Cohen MD [address] [place] [address] PCP - General Family Medicine 11/07/13 Team Status: Active Member Role Status Dates Dr. Greta Cohen MD Family Provider Active Dr. Greta Cohen MD Primary Care Provider Active Team Status: Inactive Member Role Status Dates Dr. Greta Cohen MD Primary Care Provider, Referri ng Provider Active SANA Mccord Attending Provider Active Team Status: Inactive Member Role Status Dates Dr. Greta Cohen MD Primary Care Provider Active SANA Mccord Attending Provider, Referring Pr kerwin Active Team Status: Active Member Role/Relationship Status Dates Dr. Greta Cohen MD Family Provider Active Dr. Greta Cohen MD Primary Care Provider Active Team Status: Inactive Member Role/Relationship Status Dates Dr. Greta Cohen MD Primary Care Provider Active Start: December 04, 2024 End: December 04, 2024 Dr. Greta Cohen MD Referring Provider Active Start: December 04, 2024 End: December 04, 2024 Dr. Nav Sharma MD Attending Provider Active Sta rt: December 04, 2024 End: December 04, 2024 Team Status: Active Member Role/Relationship Status Dates Dr. Greta Cohen MD Primary Care Provider Active Start: December 04, 2024 Effie Barrientos [employer] Attending Provider Active Start: December 04, 2024 Effie Barrientos [employer] Referring Provider Active Start: December 04, 2024 Team Status: Inactive Member Role/Relationship Status Dates Dr. Greta Cohen MD Primary Care Provider Active Start: December 04, 2024 End: December 04, 2024 Effie Barrientos [employer] Attending Provider Active Start: December 04, 2024 End: December 04, 2024 Effie Barrientos [employer] Referring Provider Active Start: December 04, 2024 End: December 04, 2024 Reason for Visit (unrecogniz ed section and content) Reason Comments Outside Labs Results Reason Comments Outside Endocrinology Reason Comments ext document Goals (unrecognized section and content) Goals may be documented in a n alternate section No data available for this sectionGoals may be documented in an alternate sectionGoals may be documented in an alternate sectionGoals may be documented in an alternate section Care Team (unrecognized sect ion and content) Care Team Personnel Name: GRETA COHEN MD Member Role: Primary Care Physician Address: Address: [address] [place] [address]- Care Team Related Persons Name: ASHLY HIGGINBOTHAM Address: Home [address] [place] [address] [place] Name: ASHLY HIGGINBOTHAM Address: Home [address] [place] [address] (unrecognized sect ion and content) No Status Records FoundNo Status Records FoundNo Status Records Found INFORMATION SOURCE (unrecogn ized section and content) DATE CREATED AUTHOR 05/20/2022 [facility] ([place]) DATE CREATED AUTHOR AUTHOR'S ORGANIZ ATION 01/11/2023 [facility] DATE CREATED AUTHOR AUTHOR'S BOBBY PARSK 12/18/2024 [facility] FOR RECORDS PERTAINING TO PATIENTS WHO ARE OR HAVE BEEN ENROLLED IN A CHEMICAL DEPENDENCY/SUBSTANCEABUSE PROGRAM, SOME INFORMATION MAY BE OMITTED. This clinical summary was aggregated from multiple sources. Caution should be exercised in using it in the provision of clinical care. This summary normalizes information from multiple sources, and as a consequence, information in this document may materially change the coding, format and clinical context of patient data. In addition, data may be omitted in some cases. CLINICAL DECISIONS SHOULD BE BASED ON THE PRIMARY CLINICAL RECORDS. [facility] [employer] [facility]. provides no warranty or guarantee of the accuracy or completeness of information in this document.
[2024-12-30 15:26] VITALS: BP 149/94; PULSE 109; RESP 22; TEMP 36.8; O2SAT 97
== END 2024-12-30 15:27 | disposition home or self-care (01) ==
PROVIDERS: Emergency Provider Emergency Medicine; PCP Family Medicine; Visit Provider Emergency Medicine
DX: S29.009A Unspecified injury of muscle and tendon of unspecified wall of thorax, initial encounter (principal); E10.9 Type 1 diabetes mellitus without complications; I10 Essential (primary) hypertension; R00.0 Tachycardia, unspecified; Z79.899 Other long term (current) drug therapy; Y93.72 Activity, wrestling
CPT/HCPCS: 71101; 99282; A4216